=== PATIENT | male | born 1965 | race Caucasian/White ===

== ENCOUNTER 2016-08-08 19:24 | Emergency (ER) | payer OTHER ==
[~2016-08-08] VITALS: Ht 177.8 cm; Wt 105.3 kg
[2016-08-08 19:28] VITALS: TEMP 37.2; Ht 177.8 cm; Wt 105.3 kg
[2016-08-08] MEDS ORDERED: LISI-725 PO (19:39)
[2016-08-08] MEDS ORDERED: MUSCLE RELAXANT PO (19:39)
[2016-08-08] MEDS ORDERED: NAPR1TAB9 PO (19:39)
[2016-08-08] MEDS ORDERED: PRLSR20 PO (19:39)
--- NOTE | 2016-08-08 20:12 | DIAGNOSTIC IMAGING REPORT ---
RIGHT SHOULDER MIN 2 VIEWS ROUTINE CLINICAL HISTORY: Right shoulder pain COMPARISON: None DISCUSSION: No fractures or dislocations are visualized. There are no erosive or destructive changes. There are no visible periarticular calcifications. IMPRESSION: No bony abnormalities identified. Electronically signed by: Ag Valdez M.D. 08/08/2016 8:11 PM Dictated Date/Time: 08/08/2016 8:10 PM
[2016-08-08] MEDS ORDERED: NAPR-1169 PO (21:00)
[2016-08-08] MEDS ORDERED: OXYC-57 PO (21:00)
[2016-08-08] MEDS ORDERED: OXYCODONE/ACETAMINOPHEN 5-325 TAB PO STA (21:02)
--- NOTE | 2016-08-08 21:02 | EMERGENCY ROOM VISIT NOTE ---
ED Visit Note First contact with patient: 19:31 CHIEF COMPLAINT: Shoulder pain HISTORY OF PRESENT ILLNESS: This 50-year-old male patient presents to the emergency department ambulatory complaining of pain in the right shoulder which began this morning when he woke up. The patient reports he has had gradually worsening pain in the right shoulder since waking up this morning. He reports that when he woke up, he felt like he slept on the arm wrong and had some pain with movement. The pain has worsened and he now has limitation of range of motion of the arm due to the pain. He denies any recent injury of the shoulder. The pain is worse with any movement. He rates the discomfort a 10/ 10. He has not taken any medications at home for the pain. The pain does not radiate anywhere. He denies any numbness or weakness of the arm. He denies any pain in the neck or back. No chest pain or shortness of breath. No abdominal pain or nausea/vomiting. No cough. REVIEW OF SYSTEMS: A 6 system review of systems was performed with positives and pertinent negatives in the HPI. ALLERGIES: No known drug allergies MEDICATIONS: Lisinopril, Prilosec PMH: Hypertension SOCIAL HISTORY: The patient lives locally with family. He is a smoker and admits to occasional alcohol use. PHYSICAL EXAM: Vital Signs: Reviewed nurse's notes, vital signs stable. GENERAL : This is a 50-year-old male, in no acute distress, but appears to be in pain, well-developed, well-nourished. MUSCULOSKELETAL: There is no deformity in the contour of the right shoulder and there are no sergio deformities noted. There is tenderness over the acromion process. The patient's range of motion is full. Supraspinatus strength 5/5. There is no clavicle tenderness. No tenderness of the humerus, elbow, wrist, or hand. [employer] strength 5/5. Radial pulse 2+. NECK: No tenderness to palpation over the cervical spine. HEART: Regular rate and rhythm without murmurs gallops or rubs. LUNGS: Clear to auscultation bilaterally without wheezes, rales or rhonchi. No accessory muscle use. No retractions. NEURO: The patient is alert and oriented to person, place, and time. Normal sensation to light and sharp touch. Capillary refill less than 2 seconds. RADIOGRAPHIC FINDINGS: RIGHT SHOULDER MIN 2 VIEWS ROUTINE CLINICAL HISTORY: Right shoulder pain COMPARISON: None DISCUSSION: No fractures or dislocations are visualized. There are no erosive or destructive changes. There are no visible periarticular calcifications. IMPRESSION: No bony abnormalities identified. EMERGENCY DEPARTMENT COURSE: I examined the patient. An X-ray of the right shoulder was reviewed by myself and radiology and shows no acute findings. I suspect the patient may have a rotator cuff tendinitis. He will be placed on Naprosyn and was given a short course of Percocet for pain. The [place] prescription drug monitoring program was queried and no red flags were identified. The patient was instructed to follow-up with his primary care provider or orthopedics for further evaluation of his shoulder pain. He was placed in a sling for comfort. He verbalized understanding of my assessment and treatment plan and was discharged home in good condition. DIAGNOSIS: Right shoulder pain Current/Historical Medications Scheduled Lisinopril (Zestril), 20 MG PO DAILY Naproxen (Aleve), 440 MG PO PRN UD Naproxen (Naprosyn), 500 MG PO BID Omeprazole (Prilosec), 20 MG PO DAILY [Muscle Relaxant], 1 TAB PO PRN Scheduled PRN Oxycodone/Acetaminophen 5MG/325MG (Percocet 5MG/325MG), 1-2 TABS PO Q4H PRN for Pain Allergies Uncoded Allergies: CLAMS (Allergy, Intermediate, Violently ill, 08/08/16) Vital Signs Date Time Temp Pulse Resp B/P Pulse Ox O2 Delivery O2 Flow Rate FiO2 08/08/16 21:18 99 18 128/81 96 08/08/16 19:28 37.2 116 18 137/86 95 Room Air Medications Administered Medications (Trade) Dose Ordered Sig/[place] Route Start Time Stop Time Status Last Admin Dose Admin Oxycodone/ Acetaminophen (Percocet 5-325mg Tab) 1 tab NOW STAT PO 08/08/16 21:02 08/08/16 21:03 DC 08/08/16 21:14 1 TAB Departure Information Impression Primary Impression: Right shoulder pain Dispostion Home / Self-Care Condition GOOD Prescriptions Oxycodone/Acetaminophen 5MG/325MG (PERCOCET 5MG/325MG) Tab 1-2 TABS PO Q4H Y for Pain, #15 TAB For Initial Treatment Prov: TilleyJanet PA-C 08/08/16 Naproxen (Naprosyn) 500 Mg Tab 500 MG PO BID for 10 Days, #20 TAB Prov: Janet Tilley PA-C 08/08/16 Referrals No Doctor, Assigned (PCP) Scot Dan M.D. Forms HOME CARE DOCUMENTATION FORM, IMPORTANT VISIT INFORMATION Patient Instructions My [facility] Additional Instructions You have been treated in the Emergency Department for Shoulder Pain. You have been prescribed percocet to be used for pain control. This is a narcotic medication. You cannot drive or consume alcohol while on this medicine. This medicine should only be used for pain that cannot be controlled with [id number] pain medicines. Take the Naprosyn as prescribed. If this is a recent injury (<24 hrs), ice can be applied to the area of pain for the first 3 days to help decrease pain and inflammation. You have been provided the number for an Orthopaedic Surgeon. You should call this number as soon as possible to establish a follow-up visit from today's Emergency Department visit. Wear the sling as needed for pain. Return to the Emergency Department if your current symptoms worsen despite treatment course outlined above, or if you develop any of the following symptoms : intractable pain despite aforementioned treatment course or new onset of numbness or tingling of the arm. Problem Qualifiers Primary Impression: Right shoulder pain Chronicity: acute Qualified Codes: M25.511 - Pain in right shoulder
[2016-08-08 21:18] VITALS: BP 128/81; PULSE 99; O2SAT 96
== END 2016-08-08 21:20 | disposition home or self-care (01) ==
LOC: C.EDB 19:27 → C.EDD 21:20
DX: M25.511 Pain in right shoulder (principal); I10 Essential (primary) hypertension; F17.200 Nicotine dependence, unspecified, uncomplicated; Z79.899 Other long term (current) drug therapy

== ENCOUNTER 2019-09-12 01:22 | Inpatient (IN) ==
[2019-09-12] MEDS ORDERED: MoRPHine SULFATE 4 MG/ML 1 ML CARP\\VIAL IV STA (02:02)
[2019-09-12] MEDS ORDERED: OPTIRAY 320 125ml IV PRN (02:02)
--- NOTE | 2019-09-12 02:13 | Emergency Department Note ---
History of Present Illness General Chief complaint: Fever Stated complaint: FEVER, SLIGHT COUGH,CHEST PAIN, SOB History of Present Illness Maximum Pain Intensity: 6 This 54-year-old presents to the ER complaining of severe chest pain that radiates to his back with low-grade fever today Location: Chest Quality: Severe Severity: Severe Duration: Tonight Timing: Tonight Context: Patient was concerned and came in Modifying factors: better with sitting forward; worse with leaning back Patient states he has not traveled. He is been at home for the past month. He currently is not working. He last went to the store a week and a half ago. His is not sick. No sick contacts. Patient states he had a cold last weekend that resolved and tonight he had severe chest pain and came in. Patient complains of diaphoresis and nausea. He has been coughing. He is a smoker. He is diabetic and has high blood pressure. Patient denies abdominal pain, travel, sick contacts, leg pain or swelling, heart disease, family history of heart disease or blood clots. Home Medications Home Medications Medication Instructions Recorded Confirmed Type atorvastatin 20 mg PO DAILY 09/12/19 09/12/19 History diclofenac sodium 1 % TOPICAL DIRECTED 09/12/19 09/12/19 History lisinopril-hydrochlorothiazide 1 tab PO DAILY 09/12/19 09/12/19 History meloxicam 15 mg PO DAILY 09/12/19 09/12/19 History metformin 500 mg PO BID 09/12/19 09/12/19 History omeprazole 20 mg PO DAILY 09/12/19 09/12/19 History Allergies Allergy/AdvReac Type Severity Reaction Status Date / Time clams Allergy Severe violently Verified 09/12/19 03:47 ill shellfish derived Allergy Severe violently Verified 09/12/19 02:19 ill Past Med/Surg History Medical History Diabetes High blood pressure Surgical History No pertinent past surgical history Social History Preferred Language: French Communication Ability: Effective Public Policy Mediator Required: No Beliefs That Will Affect Care: None Current Living Situation: Spouse Other Information That Helps Us Care for You: No Feels Safe at Home: Yes Safety Concerns: Feels Safe At This Time Smoking Status: Former smoker Tobacco Type: cigarettes ; Hx Alcohol Use: Yes Alcohol type: beer Hx Substance Use: No Review of Systems A total of 10 systems reviewed and were otherwise negative Physical Exam Vital Signs Vital Signs - 24 hr 09/12/19 01:32 09/12/19 01:52 09/12/19 02:30 Temperature 37.8 C H Temperature Source Oral Pulse Rate 123 H 128 H 111 H Pulse Rate from SpO2 Sensor 111 H Respiratory Rate 24 33 H 27 H Respiratory Effort / Characteristics Non-Labored Respiratory Depth Normal Blood Pressure 123/76 129/78 130/79 Blood Pressure Mean 91 96 96 Pulse Oximetry 93 94 Oxygen Delivery Method Room Air Room Air Sepsis Recent Fever Within 48 Hours No Sepsis New/Unexplained Change in Mental Status No Sepsis Action Taken by Nursing No Action Required 09/12/19 02:45 09/12/19 02:57 09/12/19 03:00 Temperature Temperature Source Pulse Rate 108 H 103 H Pulse Rate from SpO2 Sensor 107 H 102 H Respiratory Rate 25 H 33 H Respiratory Effort / Characteristics Respiratory Depth Blood Pressure 115/85 119/78 Blood Pressure Mean 92 92 Pulse Oximetry 95 94 94 Oxygen Delivery Method Room Air Room Air Room Air Sepsis Recent Fever Within 48 Hours Sepsis New/Unexplained Change in Mental Status Sepsis Action Taken by Nursing 09/12/19 03:35 09/12/19 03:45 09/12/19 04:00 Temperature Temperature Source Pulse Rate 104 H 111 H 107 H Pulse Rate from SpO2 Sensor 105 H 111 H 107 H Respiratory Rate 32 H 26 H 27 H Respiratory Effort / Characteristics Respiratory Depth Blood Pressure 129/79 139/90 134/84 Blood Pressure Mean 85 120 90 Pulse Oximetry 92 94 94 Oxygen Delivery Method Room Air Room Air Room Air Sepsis Recent Fever Within 48 Hours Sepsis New/Unexplained Change in Mental Status Sepsis Action Taken by Nursing 09/12/19 04:17 09/12/19 04:30 Temperature Temperature Source Pulse Rate 113 H 115 H Pulse Rate from SpO2 Sensor 113 H 115 H Respiratory Rate 27 H 19 Respiratory Effort / Characteristics Respiratory Depth Blood Pressure 107/76 124/86 Blood Pressure Mean 78 101 Pulse Oximetry 94 95 Oxygen Delivery Method Room Air Room Air Sepsis Recent Fever Within 48 Hours Sepsis New/Unexplained Change in Mental Status Sepsis Action Taken by Nursing VITALS: Vitals are noted on the nurse's note and reviewed by myself. Vital signs tachycardic. GENERAL: Pale uncomfortable diaphoretic appearing male in acute distress SKIN: The skin was without rashes, erythema, edema, or bruising. There is no tenting of the skin. Capillary reflex less than 2 seconds. HEAD: Normocephalic atraumatic. EARS: External auditory canals clear, tympanic membranes pearly dennis without erythema or effusion bilaterally. EYES: Pupils equal round and reactive to light and accommodation. Conjunctivae without injection, sclerae without icterus. Extraocular movements intact. NOSE: Patent, turbinates without inflammation or discharge. No sinus tenderness. MOUTH: Mucous membranes moist. Pharynx without erythema or exudate. Uvula midline. Airway patent. Tongue does not deviate. NECK: Supple without nuchal rigidity. No lymphadenopathy. No thyromegaly. Cervical spine is nontender. No JVD. HEART: Tachycardic rate and rhythm LUNGS: Clear to auscultation bilaterally without wheezes, rales or rhonchi. No retractions or accessory muscle use. ABDOMEN: Positive bowel sounds x 4. Normal tympanic percussion. Soft, nontender, without masses or organomegaly. Noble sign negative. No guarding or rebound tenderness. No CVA tenderness MUSCULOSKELETAL: No muscle atrophy, erythema, or edema noted. NEURO: Patient was alert and oriented to person place and time. Normal sensation to light and sharp touch. No focal neurological deficits. Course Administered Medications Atorvastatin Calcium (Lipitor) 20 mg PO DAILY [facility] Stop: 10/12/19 08:59 Last Admin: 09/12/19 07:46 Dose: 20 mg Documented by: [id number] Colchicine (Colcrys) 0.6 mg PO BID [facility] Stop: 10/12/19 11:14 Last Admin: 09/12/19 20:31 Dose: 0.6 mg Documented by: [id number] Admin: 09/12/19 13:19 Dose: 0.6 mg Documented by: [id number] Sodium Chloride (Nss 1000ml) 1,000 mls @ 80 mls/hr IV .[id number] MELISSA Stop: 10/12/19 07:14 Last Infusion: 09/12/19 18:08 Dose: 80 mls/hr Documented by: [id number] Admin: 09/12/19 07:47 Dose: 60 mls/hr Documented by: [id number] Ceftriaxone Sodium 2,000 mg/ (Dextrose) 70 mls @ 140 mls/hr IV Q24H MELISSA Stop: 09/22/19 08:59 Last Infusion: 09/12/19 11:05 Dose: 0 mls/hr Documented by: [id number] Admin: 09/12/19 10:33 Dose: 140 mls/hr Documented by: [id number] Insulin Aspart (Novolog Flexpen) 0 units SC Q6 MELISSA Stop: 10/12/19 06:14 Last Admin: 09/12/19 18:07 Dose: Not Given Documented by: [id number] Cosigned by: [id number] Admin: 09/12/19 12:08 Dose: 2 units Documented by: [id number] Cosigned by: [id number] Admin: 09/12/19 06:28 Dose: Not Given Documented by: [id number] Cosigned by: [id number] Lisinopril (Zestril) 5 mg PO QAM MELISSA Stop: 10/12/19 08:59 Last Admin: 09/12/19 07:46 Dose: 5 mg Documented by: [id number] Oxycodone HCl (Roxicodone Immediate Rel) 5 mg PO Q4H PRN PRN Reason: Pain Stop: 09/26/19 05:54 Last Admin: 09/12/19 20:30 Dose: 5 mg Documented by: [id number] Admin: 09/12/19 16:46 Dose: 5 mg Documented by: [id number] Admin: 09/12/19 12:05 Dose: 5 mg Documented by: [id number] Pantoprazole Sodium (Protonix) 40 mg PO DAILY MELISSA Stop: 10/12/19 08:59 Last Admin: 09/12/19 07:46 Dose: 40 mg Documented by: [id number] Discontinued Medications Acetaminophen (Tylenol) 650 mg PO NOW STA Stop: 09/12/19 03:38 Last Admin: 09/12/19 04:22 Dose: Not Given Documented by: [id number] Doxycycline Hyclate (Vibramycin) 100 mg PO NOW STA Stop: 09/12/19 02:36 Last Admin: 09/12/19 03:36 Dose: 100 mg Documented by: [id number] Enoxaparin Sodium (Lovenox) 40 mg SQ QAM MELISSA Stop: 10/12/19 08:59 Last Admin: 09/12/19 07:47 Dose: 40 mg Documented by: [id number] Hydromorphone HCl (Dilaudid) 1 mg IV NOW STA Stop: 09/12/19 02:26 Last Admin: 09/12/19 02:43 Dose: 1 mg Documented by: [id number] Sodium Chloride (Nss 1000ml) 1,000 mls @ 999 mls/hr IV .Q1H1M MELISSA Stop: 09/12/19 03:15 Last Infusion: 09/12/19 04:11 Dose: 0 mls/hr Documented by: [id number] Admin: 09/12/19 03:10 Dose: 999 mls/hr Documented by: [id number] Sodium Chloride (Nss 1000ml) 1,000 mls @ 999 mls/hr IV .Q1H1M MELISSA Stop: 09/12/19 03:33 Last Infusion: 09/12/19 04:41 Dose: 0 mls/hr Documented by: [id number] Admin: 09/12/19 03:43 Dose: 999 mls/hr Documented by: [id number] Ceftriaxone Sodium (Rocephin) 2,000 mg in 70 mls @ 140 mls/hr IV NOW STA Stop: 09/12/19 03:04 Last Admin: 09/12/19 03:44 Dose: Not Given Documented by: [id number] Cefepime HCl (Maxipime) 2,000 mg in 20 mls @ 5 mls/min IV NOW STA Stop: 09/12/19 03:42 Last Admin: 09/12/19 04:00 Dose: 5 mls/min Documented by: [id number] Vancomycin HCl 2,500 mg/ (Sodium Chloride) 550 mls @ 200 mls/hr IV ONE ONE Stop: 09/12/19 06:59 Last Infusion: 09/12/19 07:00 Dose: 0 mls/hr Documented by: [id number] Admin: 09/12/19 04:08 Dose: 200 mls/hr Documented by: [id number] Lorazepam (Ativan) 0.25 mg in 0.5 mls @ 0.5 mls/min IV Q1H STA Stop: 09/12/19 04:32 Last Admin: 09/12/19 05:19 Dose: Not Given Documented by: [id number] Sodium Chloride (Nss) 500 mls @ 500 mls/hr IV .Q1H ONE Stop: 09/12/19 07:14 Last Infusion: 09/12/19 07:30 Dose: 0 mls/hr Documented by: [id number] Admin: 09/12/19 06:30 Dose: 500 mls/hr Documented by: [id number] Vancomycin HCl 1,500 mg/ (Sodium Chloride) 530 mls @ 200 mls/hr IV Q12H MELISSA Stop: 10/24/19 12:59 Last Infusion: 09/12/19 17:00 Dose: 0 mls/hr Documented by: [id number] Admin: 09/12/19 14:18 Dose: 200 mls/hr Documented by: [id number] Insulin Glargine (Lantus Solostar Pen) 10 units SC NOW STA Stop: 09/12/19 05:56 Last Admin: 09/12/19 06:36 Dose: 10 units Documented by: [id number] Cosigned by: [id number] Ketorolac Tromethamine (Toradol) 10 mg IV NOW STA Stop: 09/12/19 02:58 Last Admin: 09/12/19 03:37 Dose: 10 mg Documented by: [id number] Ketorolac Tromethamine (Toradol) 15 mg IV NOW ONE Stop: 09/12/19 04:21 Last Admin: 09/12/19 04:27 Dose: 15 mg Documented by: [id number] Meloxicam (Mobic) 15 mg PO DAILY MELISSA Stop: 10/12/19 08:59 Last Admin: 09/12/19 07:46 Dose: 15 mg Documented by: [id number] Morphine Sulfate (Morphine Sulfate) 4 mg IV NOW STA Stop: 09/12/19 02:03 Last Admin: 09/12/19 02:10 Dose: 4 mg Documented by: [id number] Medical Decision Making Medical Records Attestation: I reviewed the patient's medical records. Home Medications Current Medication List: was personally reviewed by me Laboratory Data Attestation: I reviewed the patient's lab results. Result diagrams: 09/12/19 02:10 09/12/19 02:10 Lab Results 09/12/19 09/12/19 09/12/19 Range/Units 02:10 02:10 02:10 WBC 19.65 H (4.8-10.8) K/uL RBC 5.21 (4.7-6.1) M/uL Hgb 17.0 (14.0-18.0) g/dL POC Hgb (14.0-18.0) g/dl Hct 48.4 (42-52) % POC Hct (42-52) % MCV 92.9 (80-100) fL MCH 32.6 (25-34) pg MCHC 35.1 (32-36) g/dL RDW Std Deviation 46.6 H (36.4-46.3) fL RDW Coeff of Francis 13.6 (11.5-14.5) % Plt Count 268 (130-400) K/uL MPV 9.8 (7.4-10.4) fL Immature Gran % (Auto) 0.3 % Neut % (Auto) 79.5 % Lymph % (Auto) 10.9 % Wolfe % (Auto) 8.2 % Eos % (Auto) 0.8 % Baso % (Auto) 0.3 % Immature Gran # (Auto) 0.06 H (0.00-0.02) K/uL Neut # (Auto) 15.64 H (1.4-6.5) K/uL Lymph # (Auto) 2.14 (1.2-3.4) K/uL Wolfe # (Auto) 1.61 H (0.11-0.59) K/uL Eos # (Auto) 0.15 (0-0.5) K/uL Baso # (Auto) 0.05 (0-0.2) K/uL ESR (0-14) mm/hr PT 10.3 (9.0-12.0) Seconds INR 1.0 (0.9-1.1) APTT 26.8 (21.0-31.0) Seconds PTT Ratio 1.0 POC Sodium (135-144) mmol/L Sodium 132 L (136-145) mmol/L POC Potassium (3.3-5.0) mmol/L Potassium 4.0 (3.5-5.1) mmol/L POC Chloride (101-112) mmol/L Chloride 106 (98-107) mmol/L Carbon Dioxide 23 (21-32) mmol/L POC Total CO2 (24-31) mEq/l Anion Gap 3.0 (3-11) POC Anion Gap (16-25) mmol/L POC BUN (7-18) mg/dl BUN 19 H (7-18) mg/dl Creatinine 1.02 (0.6-1.4) mg/dl POC Creatinine (0.6-1.3) mg/dl Est Cr Clr Drug Dosing Not Reportable Est GFR ( Amer) 96.8 Est GFR (Non-Af Amer) 83.5 BUN/Creatinine Ratio 18.3 (10-20) Glucose 286 H (70-99) mg/dl POC Glucose (other) (70-99) mg/dl Lactate (0.4-2.0) mmol/L Calcium 8.6 (8.5-10.1) mg/dl POC Ioniz Calcium Rosanna (1.12-1.32) mmol/l Total Bilirubin 0.4 (0.2-1) mg/dl AST 8 L (15-37) U/L ALT 34 (12-78) U/L Alkaline Phosphatase 81 (45-117) U/L Troponin I < 0.015 (0-0.045) ng/ml C-Reactive Protein 8.21 H (0-0.29) mg/dl NT-Pro-B Natriuret Pep 91 (0-900) pg/ml Total Protein 7.7 (6.4-8.2) gm/dl Albumin 3.1 L (3.4-5.0) gm/dl Globulin 4.6 H (2.5-4.0) gm/dl Albumin/Globulin Ratio 0.7 L (0.9-2) Lipase 165 (73-393) U/L Lyme Disease IgG Ab (Negative) Lyme Disease IgM Ab (Negative) COVID-19 PCR 09/12/19 09/12/19 09/12/19 Range/Units 02:10 02:10 02:21 WBC (4.8-10.8) K/uL RBC (4.7-6.1) M/uL Hgb (14.0-18.0) g/dL POC Hgb 17.3 (14.0-18.0) g/dl Hct (42-52) % POC Hct 51 (42-52) % MCV (80-100) fL MCH (25-34) pg MCHC (32-36) g/dL RDW Std Deviation (36.4-46.3) fL RDW Coeff of Francis (11.5-14.5) % Plt Count (130-400) K/uL MPV (7.4-10.4) fL Immature Gran % (Auto) % Neut % (Auto) % Lymph % (Auto) % Wolfe % (Auto) % Eos % (Auto) % Baso % (Auto) % Immature Gran # (Auto) (0.00-0.02) K/uL Neut # (Auto) (1.4-6.5) K/uL Lymph # (Auto) (1.2-3.4) K/uL Wolfe # (Auto) (0.11-0.59) K/uL Eos # (Auto) (0-0.5) K/uL Baso # (Auto) (0-0.2) K/uL ESR 60 H (0-14) mm/hr PT (9.0-12.0) Seconds INR (0.9-1.1) APTT (21.0-31.0) Seconds PTT Ratio POC Sodium 136 (135-144) mmol/L Sodium (136-145) mmol/L POC Potassium 4.1 (3.3-5.0) mmol/L Potassium (3.5-5.1) mmol/L POC Chloride 102 (101-112) mmol/L Chloride (98-107) mmol/L Carbon Dioxide (21-32) mmol/L POC Total CO2 22 L (24-31) mEq/l Anion Gap (3-11) POC Anion Gap 17.0 (16-25) mmol/L POC BUN 20 H (7-18) mg/dl BUN (7-18) mg/dl Creatinine (0.6-1.4) mg/dl POC Creatinine 0.8 (0.6-1.3) mg/dl Est Cr Clr Drug Dosing Est GFR ( Amer) Est GFR (Non-Af Amer) BUN/Creatinine Ratio (10-20) Glucose (70-99) mg/dl POC Glucose (other) 288 H (70-99) mg/dl Lactate (0.4-2.0) mmol/L Calcium (8.5-10.1) mg/dl POC Ioniz Calcium Rosanna 1.12 (1.12-1.32) mmol/l Total Bilirubin (0.2-1) mg/dl AST (15-37) U/L ALT (12-78) U/L Alkaline Phosphatase (45-117) U/L Troponin I (0-0.045) ng/ml C-Reactive Protein (0-0.29) mg/dl NT-Pro-B Natriuret Pep (0-900) pg/ml Total Protein (6.4-8.2) gm/dl Albumin (3.4-5.0) gm/dl Globulin (2.5-4.0) gm/dl Albumin/Globulin Ratio (0.9-2) Lipase (73-393) U/L Lyme Disease IgG Ab Negative (Negative) Lyme Disease IgM Ab Equivocal A (Negative) COVID-19 PCR 09/12/19 09/12/19 09/12/19 Range/Units 02:45 03:16 03:16 WBC (4.8-10.8) K/uL RBC (4.7-6.1) M/uL Hgb (14.0-18.0) g/dL POC Hgb (14.0-18.0) g/dl Hct (42-52) % POC Hct (42-52) % MCV (80-100) fL MCH (25-34) pg MCHC (32-36) g/dL RDW Std Deviation (36.4-46.3) fL RDW Coeff of Francis (11.5-14.5) % Plt Count (130-400) K/uL MPV (7.4-10.4) fL Immature Gran % (Auto) % Neut % (Auto) % Lymph % (Auto) % Wolfe % (Auto) % Eos % (Auto) % Baso % (Auto) % Immature Gran # (Auto) (0.00-0.02) K/uL Neut # (Auto) (1.4-6.5) K/uL Lymph # (Auto) (1.2-3.4) K/uL Wolfe # (Auto) (0.11-0.59) K/uL Eos # (Auto) (0-0.5) K/uL Baso # (Auto) (0-0.2) K/uL ESR (0-14) mm/hr PT (9.0-12.0) Seconds INR (0.9-1.1) APTT (21.0-31.0) Seconds PTT Ratio POC Sodium (135-144) mmol/L Sodium (136-145) mmol/L POC Potassium (3.3-5.0) mmol/L Potassium (3.5-5.1) mmol/L POC Chloride (101-112) mmol/L Chloride (98-107) mmol/L Carbon Dioxide (21-32) mmol/L POC Total CO2 (24-31) mEq/l Anion Gap (3-11) POC Anion Gap (16-25) mmol/L POC BUN (7-18) mg/dl BUN (7-18) mg/dl Creatinine (0.6-1.4) mg/dl POC Creatinine (0.6-1.3) mg/dl Est Cr Clr Drug Dosing Est GFR ( Amer) Est GFR (Non-Af Amer) BUN/Creatinine Ratio (10-20) Glucose (70-99) mg/dl POC Glucose (other) (70-99) mg/dl Lactate 1.5 (0.4-2.0) mmol/L Calcium (8.5-10.1) mg/dl POC Ioniz Calcium Rosanna (1.12-1.32) mmol/l Total Bilirubin (0.2-1) mg/dl AST (15-37) U/L ALT (12-78) U/L Alkaline Phosphatase (45-117) U/L Troponin I < 0.015 (0-0.045) ng/ml C-Reactive Protein (0-0.29) mg/dl NT-Pro-B Natriuret Pep (0-900) pg/ml Total Protein (6.4-8.2) gm/dl Albumin (3.4-5.0) gm/dl Globulin (2.5-4.0) gm/dl Albumin/Globulin Ratio (0.9-2) Lipase (73-393) U/L Lyme Disease IgG Ab (Negative) Lyme Disease IgM Ab (Negative) COVID-19 PCR NEGATIVE Imaging Data Attestation: I personally reviewed and interpreted this imaging study as follows: MDM Narrative Prior records/ancillary studies reviewed. Triage Nursing notes reviewed. Additional history obtained from . The patient's history was concerning for chest pain and cold symptoms. Differential diagnosis: Etiologies such as cardiac ischemia, pneumonia, guzman infection, aortic dissection, pulmonary embolism, pneumonia, pneumothorax, musculoskeletal, infections, pericarditis, myocarditis, esophageal rupture, gastrointestinal, as well as others were entertained. Physical examination: As above. ER treatment provided: An order was placed for continuous cardiac monitoring. The monitor shows a rate of 60-1 30 with a sinus rhythm. IV fluids, morphine, Dilaudid I also spoke to the Joan, and states the patient was sick with cold symptoms last week and was doing better but for the past day has been sick again with cough low-grade fever and congestion. She was concerned as he was short of breath and having chest pains and made him come in. She does not feel there is been any risk factors for the coronavirus. She feels fine. On reassessment the patient felt better. Diagnostic interpretation by me: The electrocardiogram was negative for pathologic change. Poor baseline, normal sinus, normal intervals, no acute ST-T wave changes, rate of 122. Impression sinus tachycardia interpreted by myself EKG ordered for chest pain I think arrhythmia is unlikely. EKG shows normal sinus rhythm with no interval abnormalities such as QT prolongation or WPW. There are no findings to suggest Brugada syndrome. Cardiac monitoring in the emergency department reveals no tachycardic or bradycardic dysrhythmia. Hypertrophic cardiomyopathy was considered but there are no clear historical elements pointing toward this. EKG is not suggestive. The QRS voltage is not extremely large and there are no suggestive Q waves. The labs revealed leukocytosis, elevated inflammatory markers, negative troponin Stable creatinine Blood cultures pending neg Covid Imaging studies: CT CHEST W/WO Contrast: No thoracic aortic intramural hematoma, aneurysm, or dissection. Normal caliber main pulmonary artery. No acute pulmonary embolism. Small left pleural effusion. No pneumothorax. Bilateral lower lobe opacities, left greater than right, atelectasis favored over infiltrates. 8 mm right lower lobe pulmonary nodule along the major fissure (series 6, image 29). This may represent an intrapulmonary lymph node. Follow-up per Fleischner Society pulmona ry nodule recommendations. Normal heart size. Pericardial effusion measuring up to 17 mm anteriorly. Mild coronary artery atherosclerosis. Hepatic steatosis. No acute osseous findings. Radiologist: Dina Conti M.D. HEART SCORE: Hx: high/mod/low suspicion: 1 ECG: ST depression/nonspecific changes/normal: 0 Age: Greater than 65/45-64/less than 45: 1 Risk factors: (Hypertension, hyperlipidemia, diabetes, coronary disease, tobacco use, cocaine use): 2 Troponin: Greater than 2 times normal limits/1-2 times normal limits/normal: 0 Total: 4 Consultation: A consultation was placed with the hospitalist, Dr Us. The case was discussed and diagnostics were reviewed. The patient was evaluated in the ER for further treatment. He also recommends that I speak with Dr. Villalobos to make sure he he is okay with admitting the patient in case the patient needs the pericardial effusion drained. Dr. Villalobos stated that feels comfortable seeing the patient if needed. Exam and history seem consistent with pericarditis with possible pneumonia. Patient was given antibiotics and NSAIDs. Medicine was consulted. Patient is agreeable to treatment plan of admission. was informed per patient's request. By the evaluation outlined above emergent etiologies such as cardiac ischemia, aortic dissection, pulmonary embolism, pneumothorax, gastrointestinal, as well as others were deemed relatively unlikely. The pt informed about the findings as listed above. All questions were answered and pleased with the treatment. Case reviewed with my attending The chart was completed utilizing [employer] Speech voice recognition software. Grammatical errors, random word insertions, pronoun errors, and incomplete sentences are an occassional consequence of this system due to software willard itations, ambient noise, and hardware issues. Any formal questions or concerns about the content, text, or information contained within the body of this dictation should be directly addressed to the physician payroll and benefits assistant for clarification. Impression & Plan Pericarditis, Pneumonia, Acute pericardial effusion, Chest pain Discharge Plan Visit Data *Final* Discharge Date/Time: 09/12/19 05:25 Chief Complaint: Fever Stated Complaint: FEVER, SLIGHT COUGH,CHEST PAIN, SOB ED Provider: Sharda Watkins ED Midlevel Provider: Sujata Kee Discharge Problem: Pericarditis, Pneumonia, Acute pericardial effusion, Chest pain Patient Disposition: Admitted As Inpatient Condition: Fair Discharge Instructions Interventions: ED Discharge Assessment Last Done: 09/12/19 05:25 Discharge Problem: Pericarditis Qualifiers: Pericarditis type: unspecified type Chronicity: acute Qualified Code(s): I30.9 - Acute pericarditis, unspecified
[2019-09-12] MEDS ORDERED: SODIUM CHLORIDE 0.9% 1000ML 1,000 ML IV SCH ×2 (02:15→02:33)
[2019-09-12] MEDS ORDERED: HYDROmorphone INJ 1 MG/ML SYRINGE IV STA (02:25)
[2019-09-12 02:28] LABS: Basophils # (auto) 0.05 K/uL (0-0.2); Basophils % (auto) 0.3 %; Eosinophils # (auto) 0.15 K/uL (0-0.5); Eosinophils % (auto) 0.8 %; Hematocrit (blood only) 48.4 % (42-52); Immature Granulocytes # (auto) 0.06 K/uL (0.00-0.02); Immature Granulocytes % (auto) 0.3 %; Lymphocytes # (auto) 2.14 K/uL (1.2-3.4); Lymphocytes % (auto) 10.9 %; Mean Corpuscular Hemoglobin 32.6 pg (25-34); Mean Corpuscular Hgb Conc 35.1 g/dL (32-36); Mean Corpuscular Volume 92.9 fL (80-100); Mean Platelet Volume 9.8 fL (7.4-10.4); Monocytes # (auto) 1.61 K/uL (0.11-0.59); Monocytes % (auto) 8.2 %; Neutrophils # (auto) 15.64 K/uL (1.4-6.5); Neutrophils % (auto) 79.5 %; Platelet Count 268 K/uL (130-400); RDW Coefficient of Variation 13.6 % (11.5-14.5); RDW Standard Deviation 46.6 fL (36.4-46.3); Red Blood Count 5.21 M/uL (4.7-6.1); White Blood Count 19.65 K/uL (4.8-10.8)
[2019-09-12 02:34] LABS: iSTAT Creatinine 0.8 mg/dl (0.6-1.3); iSTAT Hemoglobin 17.3 g/dl (14.0-18.0); iSTAT Ionized Calcium 1.12 mmol/l (1.12-1.32); iSTAT Potassium 4.1 mmol/L (3.3-5.0)
[2019-09-12] MEDS ORDERED: cefTRIAXone SODIUM 2,000 MG/70 ML BAG IV STA (02:35)
[2019-09-12] MEDS ORDERED: DOXYCYCLINE HYCLATE 100 MG CAP PO STA (02:35)
[2019-09-12 02:37] LABS: Partial Thromboplastin Time 26.8 Seconds (21.0-31.0); Prothrombin Time 10.3 Seconds (9.0-12.0)
[2019-09-12 02:44] LABS: Alanine Aminotransferase 34 U/L (12-78); Albumin Level 3.1 gm/dl (3.4-5.0); Aspartate Aminotransferase 8 U/L (15-37); BUN Creatinine Ratio 18.3 (10-20); Blood Urea Nitrogen 19 mg/dl (7-18); Calcium 8.6 mg/dl (8.5-10.1); Carbon Dioxide 23 mmol/L (21-32); Chloride 106 mmol/L (98-107); Est GFR (African American) 96.8; Est GFR (Non-African American) 83.5; Glucose 286 mg/dl (70-99); Lipase 165 U/L (73-393); Sodium 132 mmol/L (136-145)
[2019-09-12 02:49] LABS: Albumin Globulin Ratio 0.7 (0.9-2); Alkaline Phosphatase 81 U/L (45-117); Bilirubin,Total 0.4 mg/dl (0.2-1); Globulin 4.6 gm/dl (2.5-4.0); Total Protein 7.7 gm/dl (6.4-8.2); Troponin I < 0.015 ng/ml (0-0.045)
[2019-09-12 02:57] LABS: C Reactive Protein 8.21 mg/dl (0-0.29)
[2019-09-12] MEDS ORDERED: KETOROLAC TROMETHAMINE 15 MG/ML VIAL IV STA (02:57)
[2019-09-12] MEDS ORDERED: ACETAMINOPHEN 325 MG TAB PO STA (03:37)
[2019-09-12] MEDS ORDERED: VANCOMYCIN CONSULT ACTIVE PRN (03:38)
[2019-09-12] MEDS ORDERED: CEFEPIME 2,000 MG/20 ML VIAL IV STA (03:39)
[2019-09-12 04:08] LABS: NT Pro B Type Natriuretic Pept 91 pg/ml (0-900)
[2019-09-12] MEDS ORDERED: VANCOMYCIN HCL 2,500 MG in SODIUM CHLORIDE 0.9% 500 ML IV ONE (04:15)
[2019-09-12] MEDS ORDERED: KETOROLAC TROMETHAMINE 15 MG/ML VIAL IV ONE (04:20)
[2019-09-12] MEDS ORDERED: LORazepam 0.25 MG/0.5 ML VIAL IV STA (04:31)
--- NOTE | 2019-09-12 04:31 | History & Physical Report ---
Date of Service September 12, 2019 Assessment & Plan (1) Sepsis: Secondary to infectious pericarditis Rule out Lyme carditis Hypertension, stable DM 2 on oral medications, admission BSG markedly elevated Well-controlled as of recent outpatient hemoglobin A1c of 6.08 April 2019 Past tobacco abuse PCU Cultures, Lyme screen Vancomycin, Cefepime for now CT surgery consult RE pericardial effusion (ER provider already in touch with Dr. Villalobos) We will keep patient n.p.o. for now in anticipation of procedure. TTE, Cardiology consult RE pericardial effusion ID consultation pending CS results availability Re: Possible infectious pericarditis/pericardial effusion Basal insulin, ISS BG goal [id number], update hemoglobin A1c DVT prophylaxis per Lovenox subcu Full code Text document was generated using [employer] voice recognition software. It may contain grammatical or spelling errors. Kindly contact undersigned for clarification of any documentation item in question. History of Present Illness Chief Complaint: Chest pain Primary Care Provider: Dr. Stafford History obtained from patient and records. Medical history significant for hypertension, DM 2 on oral medications, GERD, past tobacco abuse. 2 days history of pleuritic substernal pain worsening over the next few days with chills and shortness of breath. 2 days ago patient remembers being hunched over working on an engine model. No cough symptoms. No recent recollection of tick bites although there are ticks at place of residence. At the ER, patient given Doxycycline for sepsis. 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 Allergies Allergy/AdvReac Type Severity Reaction Status Date / Time clams Allergy Severe violently Verified 09/12/19 03:47 ill shellfish derived Allergy Severe violently Verified 09/12/19 02:19 ill Home Medications Home Medications Medication Instructions Recorded Confirmed Type atorvastatin 20 mg PO DAILY 09/12/19 09/12/19 History diclofenac sodium 1 % TOPICAL DIRECTED 09/12/19 09/12/19 History lisinopril-hydrochlorothiazide 1 tab PO DAILY 09/12/19 09/12/19 History meloxicam 15 mg PO DAILY 09/12/19 09/12/19 History metformin 500 mg PO BID 09/12/19 09/12/19 History omeprazole 20 mg PO DAILY 09/12/19 09/12/19 History Past Med/Surg History Medical History Diabetes High blood pressure Surgical History No pertinent past surgical history Social History Feels Safe at Home: Yes Smoking Status: Former smoker Review of Systems Review of Systems: As per HPI, all 10 systems reviewed, all other ROS negative Physical Exam Physical Exam: GENERAL: uncomfortable, minimal respiratory distress SKIN: Normal color, warm HEENT: Bespectacled, pink palpebral conjunctivae, no ptosis, dry buccal mucosa NECK : Supple, no tenderness CHEST : Decreased breath sounds , no tenderness HEART : Tachycardic, no obvious murmurs ABDOMEN: Some distention, nontender EXTREMITIES : No LE swelling/tenderness, no other conspicuous deformities noted NEUROLOGIC : Coherent, no facial asymmetry, no other gross focality Results & Data Results & Data ([facility]) Vital Signs (Past 12 Hours) Vital Signs Temp Pulse Resp BP Pulse Ox 09/12/19 04:17 113 H 27 H 107/76 94 09/12/19 04:00 107 H 27 H 134/84 94 09/12/19 03:45 111 H 26 H 139/90 94 09/12/19 03:35 104 H 32 H 129/79 92 09/12/19 03:00 119/78 94 09/12/19 02:57 103 H 33 H 94 09/12/19 02:45 108 H 25 H 115/85 95 09/12/19 02:30 111 H 27 H 130/79 94 09/12/19 01:52 128 H 33 H 129/78 09/12/19 01:32 37.8 C H 123 H 24 123/76 93 Laboratory Results Laboratory Results WBC 19.65 K/uL (4.8-10.8) H 09/12/19 02:10 RBC 5.21 M/uL (4.7-6.1) 09/12/19 02:10 Hgb 17.0 g/dL (14.0-18.0) 09/12/19 02:10 POC Hgb 17.3 g/dl (14.0-18.0) 09/12/19 02:21 Hct 48.4 % (42-52) 09/12/19 02:10 POC Hct 51 % (42-52) 09/12/19 02:21 MCV 92.9 fL (80-100) 09/12/19 02:10 MCH 32.6 pg (25-34) 09/12/19 02:10 MCHC 35.1 g/dL (32-36) 09/12/19 02:10 RDW Std Deviation 46.6 fL (36.4-46.3) H 09/12/19 02:10 RDW Coeff of Francis 13.6 % (11.5-14.5) 09/12/19 02:10 Plt Count 268 K/uL (130-400) 09/12/19 02:10 MPV 9.8 fL (7.4-10.4) 09/12/19 02:10 Immature Gran % (Auto) 0.3 % 09/12/19 02:10 Neut % (Auto) 79.5 % 09/12/19 02:10 Lymph % (Auto) 10.9 % 09/12/19 02:10 [place] % (Auto) 8.2 % 09/12/19 02:10 Eos % (Auto) 0.8 % 09/12/19 02:10 Baso % (Auto) 0.3 % 09/12/19 02:10 Immature Gran # (Auto) 0.06 K/uL (0.00-0.02) H 09/12/19 02:10 Neut # (Auto) 15.64 K/uL (1.4-6.5) H 09/12/19 02:10 Lymph # (Auto) 2.14 K/uL (1.2-3.4) 09/12/19 02:10 [place] # (Auto) 1.61 K/uL (0.11-0.59) H 09/12/19 02:10 Eos # (Auto) 0.15 K/uL (0-0.5) 09/12/19 02:10 Baso # (Auto) 0.05 K/uL (0-0.2) 09/12/19 02:10 ESR 60 mm/hr (0-14) H 09/12/19 02:10 PT 10.3 Seconds (9.0-12.0) 09/12/19 02:10 INR 1.0 (0.9-1.1) 09/12/19 02:10 APTT 26.8 Seconds (21.0-31.0) 09/12/19 02:10 PTT Ratio 1.0 09/12/19 02:10 POC Sodium 136 mmol/L (135-144) 09/12/19 02:21 Sodium 132 mmol/L (136-145) L 09/12/19 02:10 POC Potassium 4.1 mmol/L (3.3-5.0) 09/12/19 02:21 Potassium 4.0 mmol/L (3.5-5.1) 09/12/19 02:10 POC Chloride 102 mmol/L (101-112) 09/12/19 02:21 Chloride 106 mmol/L (98-107) 09/12/19 02:10 Carbon Dioxide 23 mmol/L (21-32) 09/12/19 02:10 POC Total CO2 22 mEq/l (24-31) L 09/12/19 02:21 Anion Gap 3.0 (3-11) 09/12/19 02:10 POC Anion Gap 17.0 mmol/L (16-25) 09/12/19 02:21 POC BUN 20 mg/dl (7-18) H 09/12/19 02:21 BUN 19 mg/dl (7-18) H 09/12/19 02:10 Creatinine 1.02 mg/dl (0.6-1.4) 09/12/19 02:10 POC Creatinine 0.8 mg/dl (0.6-1.3) 09/12/19 02:21 Est Cr Clr Drug Dosing Not Reportable 09/12/19 02:10 Est GFR ( Amer) 96.8 09/12/19 02:10 Est GFR (Non-Af Amer) 83.5 09/12/19 02:10 BUN/Creatinine Ratio 18.3 (10-20) 09/12/19 02:10 Glucose 286 mg/dl (70-99) H 09/12/19 02:10 POC Glucose (other) 288 mg/dl (70-99) H 09/12/19 02:21 Lactate 1.5 mmol/L (0.4-2.0) 09/12/19 03:16 Calcium 8.6 mg/dl (8.5-10.1) 09/12/19 02:10 POC Ioniz Calcium Rosanna 1.12 mmol/l (1.12-1.32) 09/12/19 02:21 Total Bilirubin 0.4 mg/dl (0.2-1) 09/12/19 02:10 AST 8 U/L (15-37) L 09/12/19 02:10 ALT 34 U/L (12-78) 09/12/19 02:10 Alkaline Phosphatase 81 U/L (45-117) 09/12/19 02:10 Troponin I < 0.015 ng/ml (0-0.045) 09/12/19 03:16 C-Reactive Protein 8.21 mg/dl (0-0.29) H 09/12/19 02:10 NT-Pro-B Natriuret Pep 91 pg/ml (0-900) 09/12/19 02:10 Total Protein 7.7 gm/dl (6.4-8.2) 09/12/19 02:10 Albumin 3.1 gm/dl (3.4-5.0) L 09/12/19 02:10 Globulin 4.6 gm/dl (2.5-4.0) H 09/12/19 02:10 Albumin/Globulin Ratio 0.7 (0.9-2) L 09/12/19 02:10 Lipase 165 U/L (73-393) 09/12/19 02:10 COVID-19 PCR NEGATIVE 09/12/19 02:[address] chest initial read: No pulmonary embolism. Small left pleural effusion. No pneumothorax. Bilateral lower lobe opacities atelectasis. 8 mm right lower lobe [place] nodule along major fissure possible intrapulmonary lymph node. Normal heart size. Pericardial effusion measuring up to 17 mm anteriorly. Mild coronary artery arthrosclerosis. EKG as per my interpretation : rate 125, sinus tachycardia, normal axis, LAE, T wave flattening inferior leads
[2019-09-12 04:32] LABS: Lyme Ab IgG w/WB Rflx Negative (Negative)
[2019-09-12 04:33] LABS: Lyme Ab IgM w/WB Rflx Equivocal (Negative)
[2019-09-12] MEDS ORDERED: GLUCAGON FOR INJ 1 MG VIAL SQ PRN (05:55)
[2019-09-12] MEDS ORDERED: ACETAMINOPHEN 325 MG TAB PO PRN (05:55)
[2019-09-12] MEDS ORDERED: DEXTROSE 50% 50 ML SYRINGE IV PRN (05:55)
[2019-09-12] MEDS ORDERED: PROMETHAZINE HCL 12.5 MG in SODIUM CHLORIDE 0.9% 50 ML IV PRN (05:55)
[2019-09-12] MEDS ORDERED: GLUCOSE 40% GEL 15 GM TUBE PO PRN (05:55)
[2019-09-12] MEDS ORDERED: CARBOHYDRATES FOR HYPOGLYCEMIA PO PRN (05:55)
[2019-09-12] MEDS ORDERED: LORazepam 0.25 MG/0.5 ML VIAL IV PRN (05:55)
[2019-09-12] MEDS ORDERED: MoRPHine SULFATE 4 MG/ML 1 ML CARP\\VIAL IV PRN (05:55)
[2019-09-12] MEDS ORDERED: KETOROLAC TROMETHAMINE 15 MG/ML VIAL IV PRN (05:55)
[2019-09-12] MEDS ORDERED: GLUCOSE 10 TABS/TUBE PO PRN (05:55)
[2019-09-12] MEDS ORDERED: INSULIN GLARGINE SOLOSTAR 100 UNITS/ML 3 ML PEN SC STA (05:55)
[2019-09-12] MEDS ORDERED: CEFEPIME CONSULT ACTIVE PRN (06:02)
[2019-09-12] MEDS ORDERED: PNEUMOCOCCAL POLYSACCHARIDES 25 MCG/0.5 ML VIAL/SYR IM ONE (06:12)
[2019-09-12] MEDS ORDERED: PNEUMOCOCCAL ADMINISTRATION CHARGE ONE (06:12)
[2019-09-12] MEDS ORDERED: SODIUM CHLORIDE 0.9% 500 ML IV ONE (06:15)
[2019-09-12] MEDS: INSULIN ASPART 100 UNITS/ML 3 ML PEN SC SCH ×3 (06:28→18:07)
--- NOTE | 2019-09-12 07:02 | CT Scan Report ---
CT ANGIOGRAPHY THE CHEST WITHOUT AND WITH CONTRAST CLINICAL HISTORY: Severe chest pain radiating to the back. Possible dissection. COMPARISON STUDY: No previous studies for comparison. TECHNIQUE: Unenhanced images were obtained through the chest. Following the IV administration of 118 mL of [id number]-[id number], CT angiography of the thorax was performed from the thoracic inlet to the lung bas es. Images are reviewed in the axial, sagittal, and coronal planes. IV contrast was administered with out complication. MIP imaging was performed. A dose lowering technique was utilized adhering to the p rinciples of ALA. CT DOSE: 1132.56 mGy.cm FINDINGS: Thyroid: Imaged portions of the thyroid gland are normal in appearance. Thoracic aorta: Noncontrast images reveal no evidence of acute aortic hematoma. Postcontrast images r eveal no evidence of thoracic aortic aneurysm. There is no evidence of thoracic aortic dissection. Pulmonary vasculature: The pulmonary trunk is normal in caliber. There are no central filling defects identified to suggest pulmonary embolus. Note that this examination was not protocoled for the evalu ation of pulmonary emboli. HEART: There is a moderate pericardial effusion. Lungs and pleural spaces: There are dependent bilateral pulmonary airspace opacities, likely atelecta tic although an infectious/inflammatory processes could appear similar. There is underlying emphysema with apical blebs. There is a solid 9 mm right lower lobe perifissural nodule. Given its location, t his could represent an intrapulmonary lymph node. Follow-up per Fleischner criteria is recommended. T here is a trace left pleural effusion. Mediastinum: Mediastinal lymph nodes are the upper limits of normal in size. [place]: There is no evidence of pathologic hilar lymphadenopathy Axilla: There is no evidence of pathologic axillary lymphadenopathy Upper abdomen: There is hepatic steatosis. Skeletal structures: There are no lytic or blastic osseous lesions. IMPRESSION: 1. No evidence of thoracic aortic aneurysm or dissection 2. Moderate pericardial effusion. 3. Solid 9 mm right lower lobe perifissural nodule. A 3 month follow-up CT scan is recommended. 4. Dependent lower lung zone airspace opacity statistically atelectatic. 5. Hepatic steatosis. 6. Trace left pleural effusion Please refer to below summary of Fleischner criteria recommendations for follow-up of incidental CT n bryon Almanza, Guidelines for management of small pulmonary nodules detected on CT scans: A sta tement from the Fleischner Society, Radiology 237: [phone].) SOLID NODULES Solitary nodule size: <6 mm * low risk patients: no follow-up needed * high risk patients: optional CT at 12 months Solitary nodule size: 6-8 mm * low risk patients: follow-up at 6-12 months, then consider further follow-up at 18-24 months * high risk patients: initial follow-up CT at 6-12 months and then at 18-24 months if no change Solitary nodule size: >8 mm * either low or high risk patients - consider follow-up CT at 3 months, and/or CT-PET, and/or biopsy Multiple nodules size: <6 mm * low risk patients: no routine follow-up * high risk patients: optional CT at 12 months Multiple nodules size: 6-8 mm * low risk patients: follow-up at 3-6 months, then consider further follow-up at 18-24 months * high risk patients: follow-up at 3-6 months, then at 18-24 months if no change Multiple nodules size: >8 mm * low risk patients: follow-up at 3-6 months, then consider further follow-up at 18-24 months * high risk patients: follow-up at 3-6 months, then at 18-24 months if no change Note: newly detected indeterminate nodule in persons 35 years of age or older. * low risk patients: minimal or absent history of smoking and/or other known risk factors * high risk patients: history of smoking or of other known risk factors (e.g. first degree relative with lung cancer, or exposure to asbestos, radon, uranium) * if a nodule up to 8 mm is partly solid or is ground glass further follow-up is required after 24 m onths to exclude possible slow growing adenocarcinoma (CECE) SUBSOLID NODULES Solitary pure ground-glass nodule * nodule size <6 mm - no CT follow-up required * nodule size >=6 mm - follow-up CT at 6-12 months, then every 2 years until 5 years Solitary part-solid nodule * nodule size <6 mm - no CT follow-up required * nodule size >=6 mm - follow-up CT at 3-6 months. If unchanged, and solid component remains <6 mm, then annual follow-up for 5 years Multiple subsolid nodules * nodule size <6 mm - follow-up CT at 3-6 months, consider further follow-up at 2 and 4 years if sta ble * nodule size >=6 mm - follow-up CT at 3-6 months, subsequent management based on the most suspiciou s nodule(s) ACT 112: Negative or not required by law. Electronically signed by: Ag Valdez M.D. 09/12/2019 7:01 AM
[2019-09-12] MEDS: PANTOprazole 40 MG TAB PO SCH (07:46)
[2019-09-12] MEDS: ATORVASTATIN 20 MG TAB PO SCH (07:46)
[2019-09-12] MEDS: SODIUM CHLORIDE 0.9% 1000ML 1,000 ML IV SCH ×2 (07:47→23:00)
--- NOTE | 2019-09-12 08:29 | Cardiology Consultation ---
Date of Consultation September 12, 2019 Assessment & Plan (1) Pericarditis: (2) Chest pain: (3) Acute pericardial effusion: By my review the CAT scan, the patient has a small amount of pericardial fluid and no thickening of the pericardium that would suggest pericarditis. An echocardiogram is pending. He had an equivocal Lyme's test on admission and further labs are pending including blood cultures. He does have a leukocytosis without a left shift. He has an elevated sed rate. At this point I would recommend starting him on colchicine and waiting for further labs including his blood cultures. He has been started on antibiotics. I will review the echocardiogram myself and then have further recommendations. History of Present Illness Attending Physician: David Armstrong MD History of Present Illness This is a 54-year-old male patient with no prior history of heart disease. He was diagnosed with diabetes approximately 2 years ago. He also has a history of smoking and recently stopped. He was in his usual state of health until 48 to 72 hours ago the patient developed more or less continuous chest discomfort which seems to increase with activities such as standing and then lying flat. He denies shortness of breath. His cardiac markers have been negative and his EKG shows no acute changes. A CT was performed in the emergency department and by that study there is a small amount of pericardial fluid without thickening of the pericardium. An echocardiogram is pending. The patient has an elevated white count without a left shift on admission. He also has an elevated sed rate. He has had a low-grade temperature after admission. He describes no recent tick bites. No vomiting or diarrhea. Allergies Allergy/AdvReac Type Severity Reaction Status Date / Time clams Allergy Severe violently Verified 09/12/19 03:47 ill shellfish derived Allergy Severe violently Verified 09/12/19 02:19 ill Home Medications Home Medications Medication Instructions Recorded Confirmed Type atorvastatin 20 mg PO DAILY 09/12/19 09/12/19 History diclofenac sodium 1 % TOPICAL DIRECTED 09/12/19 09/12/19 History lisinopril-hydrochlorothiazide 1 tab PO DAILY 09/12/19 09/12/19 History meloxicam 15 mg PO DAILY 09/12/19 09/12/19 History metformin 500 mg PO BID 09/12/19 09/12/19 History omeprazole 20 mg PO DAILY 09/12/19 09/12/19 History Patient History Medical History Diabetes High blood pressure Surgical History No pertinent past surgical history Social History Preferred Language: Slovenian Communication Ability: Effective Manager Field Service Required: No Beliefs That Will Affect Care: None Current Living Situation: Spouse Other Information That Helps Us Care for You: No Feels Safe at Home: Yes Safety Concerns: Feels Safe At This Time Smoking Status: Former smoker Tobacco Type: cigarettes ; Hx Alcohol Use: Yes Alcohol type: beer Hx Substance Use: No Review of Systems Review of Systems: All systems reviewed & are unremarkable except as noted in HPI & below Nothing additional to add Physical Exam Physical Exam: General: no acute distress and stated age Head: normocephalic, no masses, lesions, tenderness or abnormalities Eyes: conjunctiva are pink and non-injected, sclera clear Neck: supple, no adenopathy, no bruits, normal jugular venous pulse, no hepatojugular reflux Chest: normal shape and normal respiratory effort Lungs: clear to auscultation and percussion Cardiac Exam: - regular rate & rhythm, no murmurs gallops or rubs - normal S1, normal S2 Pulses: 2(+) throughout Abdomen: abdomen soft, non-tender, no abnormal masses and no hepatosplenomegaly Musculoskeletal: no gait disturbance, no joint inflammation, no deforming art hritis Extremities: no edema and no cyanosis Neuro: grossly normal exam Results & Data ([facility]) Vital Signs (Past 12 Hours) Vital Signs Temp Pulse Pulse Resp BP BP BP 09/12/19 07:04 36.8 C 102 H 20 108/74 09/12/19 05:57 37.1 C 101 H 18 112/76 09/12/19 05:00 106 H 17 100/74 09/12/19 04:45 109 H 22 125/91 09/12/19 04:30 115 H 19 124/86 09/12/19 04:17 113 H 27 H 107/76 09/12/19 04:00 107 H 27 H 134/84 09/12/19 03:45 111 H 26 H 139/90 09/12/19 03:35 104 H 32 H 129/79 09/12/19 03:00 119/78 09/12/19 02:57 103 H 33 H 09/12/19 02:45 108 H 25 H 115/85 09/12/19 02:30 111 H 27 H 130/79 09/12/19 01:52 128 H 33 H 129/78 09/12/19 01:32 37.8 C H 123 H 24 123/76 Pulse Ox 09/12/19 07:04 92 09/12/19 05:57 95 09/12/19 05:00 93 09/12/19 04:45 95 09/12/19 04:30 95 09/12/19 04:17 94 09/12/19 04:00 94 09/12/19 03:45 94 09/12/19 03:35 92 09/12/19 03:00 94 09/12/19 02:57 94 09/12/19 02:45 95 09/12/19 02:30 94 09/12/19 01:52 09/12/19 01:32 93 Laboratory Results Laboratory Results - last 24 hr 09/12/19 09/12/19 09/12/19 02:10 02:10 02:10 WBC 19.65 H RBC 5.21 Hgb 17.0 POC Hgb Hct 48.4 POC Hct MCV 92.9 MCH 32.6 MCHC 35.1 RDW Std Deviation 46.6 H RDW Coeff of Francis 13.6 Plt Count 268 MPV 9.8 Immature Gran % (Auto) 0.3 Neut % (Auto) 79.5 Lymph % (Auto) 10.9 [place] % (Auto) 8.2 Eos % (Auto) 0.8 Baso % (Auto) 0.3 Immature Gran # (Auto) 0.06 H Neut # (Auto) 15.64 H Lymph # (Auto) 2.14 [place] # (Auto) 1.61 H Eos # (Auto) 0.15 Baso # (Auto) 0.05 ESR PT 10.3 INR 1.0 APTT 26.8 PTT Ratio 1.0 POC Sodium Sodium 132 L POC Potassium Potassium 4.0 POC Chloride Chloride 106 Carbon Dioxide 23 POC Total CO2 Anion Gap 3.0 POC Anion Gap POC BUN BUN 19 H Creatinine 1.02 POC Creatinine Est Cr Clr Drug Dosing Not Reportable Est GFR ( Amer) 96.8 Est GFR (Non-Af Amer) 83.5 BUN/Creatinine Ratio 18.3 Glucose 286 H POC Glucose POC Glucose (other) Estimat Average Glucose Hemoglobin A1c Lactate Calcium 8.6 POC Ioniz Calcium Rosanna Total Bilirubin 0.4 AST 8 L ALT 34 Alkaline Phosphatase 81 Troponin I < 0.015 C-Reactive Protein 8.21 H NT-Pro-B Natriuret Pep 91 Total Protein 7.7 Albumin 3.1 L Globulin 4.6 H Albumin/Globulin Ratio 0.7 L Lipase 165 Lyme Disease IgG Ab Lyme IgG (Western Blot) Lyme IgG 18 kDa Band Lyme IgG 23 kDa Band Lyme IgG 28 kDa Band Lyme IgG 30 kDa Band Lyme IgG 39 kDa Band Lyme IgG 41 kDa Band Lyme IgG 45 kDa Band Lyme IgG 58 kDa Band Lyme IgG 66 kDa Band Lyme IgG 93 kDa Band Lyme IgM Ab (WB) Lyme Disease IgM Ab Lyme IgM 23 kDa Band Lyme IgM 39 kDa Band Lyme IgM 41 kDa Band COVID-19 PCR 09/12/19 09/12/19 09/12/19 02:10 02:10 02:10 WBC RBC Hgb POC Hgb Hct POC Hct MCV MCH MCHC RDW Std Deviation RDW Coeff of Francis Plt Count MPV Immature Gran % (Auto) Neut % (Auto) Lymph % (Auto) [place] % (Auto) Eos % (Auto) Baso % (Auto) Immature Gran # (Auto) Neut # (Auto) Lymph # (Auto) [place] # (Auto) Eos # (Auto) Baso # (Auto) ESR 60 H PT INR APTT PTT Ratio POC Sodium Sodium POC Potassium Potassium POC Chloride Chloride Carbon Dioxide POC Total CO2 Anion Gap POC Anion Gap POC BUN BUN Creatinine POC Creatinine Est Cr Clr Drug Dosing Est GFR ( Amer) Est GFR (Non-Af Amer) BUN/Creatinine Ratio Glucose POC Glucose POC Glucose (other) Estimat Average Glucose Pending Hemoglobin A1c Pending Lactate Calcium POC Ioniz Calcium Rosanna Total Bilirubin AST ALT Alkaline Phosphatase Troponin I C-Reactive Protein NT-Pro-B Natriuret Pep Total Protein Albumin Globulin Albumin/Globulin Ratio Lipase Lyme Disease IgG Ab Negative Lyme IgG (Western Blot) Lyme IgG 18 kDa Band Lyme IgG 23 kDa Band Lyme IgG 28 kDa Band Lyme IgG 30 kDa Band Lyme IgG 39 kDa Band Lyme IgG 41 kDa Band Lyme IgG 45 kDa Band Lyme IgG 58 kDa Band Lyme IgG 66 kDa Band Lyme IgG 93 kDa Band Lyme IgM Ab (WB) Lyme Disease IgM Ab Equivocal A Lyme IgM 23 kDa Band Lyme IgM 39 kDa Band Lyme IgM 41 kDa Band COVID-19 PCR 09/12/19 09/12/19 09/12/19 02:10 02:21 02:45 WBC RBC Hgb POC Hgb 17.3 Hct POC Hct 51 MCV MCH MCHC RDW Std Deviation RDW Coeff of Francis Plt Count MPV Immature Gran % (Auto) Neut % (Auto) Lymph % (Auto) [place] % (Auto) Eos % (Auto) Baso % (Auto) Immature Gran # (Auto) Neut # (Auto) Lymph # (Auto) [place] # (Auto) Eos # (Auto) Baso # (Auto) ESR PT INR APTT PTT Ratio POC Sodium 136 Sodium POC Potassium 4.1 Potassium POC Chloride 102 Chloride Carbon Dioxide POC Total CO2 22 L Anion Gap POC Anion Gap 17.0 POC BUN 20 H BUN Creatinine POC Creatinine 0.8 Est Cr Clr Drug Dosing Est GFR ( Amer) Est GFR (Non-Af Amer) BUN/Creatinine Ratio Glucose POC Glucose POC Glucose (other) 288 H Estimat Average Glucose Hemoglobin A1c Lactate Calcium POC Ioniz Calcium Rosanna 1.12 Total Bilirubin AST ALT Alkaline Phosphatase Troponin I C-Reactive Protein NT-Pro-B Natriuret Pep Total Protein Albumin Globulin Albumin/Globulin Ratio Lipase Lyme Disease IgG Ab Lyme IgG (Western Blot) Pending Lyme IgG 18 kDa Band Pending Lyme IgG 23 kDa Band Pending Lyme IgG 28 kDa Band Pending Lyme IgG 30 kDa Band Pending Lyme IgG 39 kDa Band Pending Lyme IgG 41 kDa Band Pending Lyme IgG 45 kDa Band Pending Lyme IgG 58 kDa Band Pending Lyme IgG 66 kDa Band Pending Lyme IgG 93 kDa Band Pending Lyme IgM Ab (WB) Pending Lyme Disease IgM Ab Lyme IgM 23 kDa Band Pending Lyme IgM 39 kDa Band Pending Lyme IgM 41 kDa Band Pending COVID-19 PCR NEGATIVE 09/12/19 09/12/19 09/12/19 03:16 03:16 06:28 WBC RBC Hgb POC Hgb Hct POC Hct MCV MCH MCHC RDW Std Deviation RDW Coeff of Francis Plt Count MPV Immature Gran % (Auto) Neut % (Auto) Lymph % (Auto) [place] % (Auto) Eos % (Auto) Baso % (Auto) Immature Gran # (Auto) Neut # (Auto) Lymph # (Auto) [place] # (Auto) Eos # (Auto) Baso # (Auto) ESR PT INR APTT PTT Ratio POC Sodium Sodium POC Potassium Potassium POC Chloride Chloride Carbon Dioxide POC Total CO2 Anion Gap POC Anion Gap POC BUN BUN Creatinine POC Creatinine Est Cr Clr Drug Dosing Est GFR ( Amer) Est GFR (Non-Af Amer) BUN/Creatinine Ratio Glucose POC Glucose 162 H POC Glucose (other) Estimat Average Glucose Hemoglobin A1c Lactate 1.5 Calcium POC Ioniz Calcium Rosanna Total Bilirubin AST ALT Alkaline Phosphatase Troponin I < 0.015 C-Reactive Protein NT-Pro-B Natriuret Pep Total Protein Albumin Globulin Albumin/Globulin Ratio Lipase Lyme Disease IgG Ab Lyme IgG (Western Blot) Lyme IgG 18 kDa Band Lyme IgG 23 kDa Band Lyme IgG 28 kDa Band Lyme IgG 30 kDa Band Lyme IgG 39 kDa Band Lyme IgG 41 kDa Band Lyme IgG 45 kDa Band Lyme IgG 58 kDa Band Lyme IgG 66 kDa Band Lyme IgG 93 kDa Band Lyme IgM Ab (WB) Lyme Disease IgM Ab Lyme IgM 23 kDa Band Lyme IgM 39 kDa Band Lyme IgM 41 kDa Band COVID-19 PCR Medications Administered Current Inpatient Medications Acetaminophen (Tylenol) 650 mg PO Q4H PRN PRN Reason: Pain or Fever Stop: 10/12/19 05:54 Atorvastatin Calcium (Lipitor) 20 mg PO DAILY [facility] Stop: 10/12/19 08:59 Last Admin: 09/12/19 07:46 Dose: 20 mg Documented by: Colchicine (Colcrys) 0.6 mg PO BID [facility] Stop: 10/12/19 11:14 Dextrose (Dextrose 50%) 25 - 50 ml IV UD PRN; Protocol PRN Reason: Hypoglycemia Protocol Stop: 10/12/19 05:54 Glucagon (Glucagen) 1 mg SQ UD PRN; Protocol PRN Reason: Hypoglycemia Protocol Stop: 10/12/19 05:54 Glucose (Dex4 Glucose) 4 - 8 tabs PO UD PRN; Protocol PRN Reason: Hypoglycemia Protocol Stop: 10/12/19 05:54 Glucose (Glucose 40%) 15 - 30 gm PO UD PRN; Protocol PRN Reason: Hypoglycemia Protocol Stop: 10/12/19 05:54 Lorazepam (Ativan) 0.25 mg in 0.5 mls @ 0.5 mls/min IV Q4H PRN PRN Reason: Anxiety Stop: 10/12/19 05:54 Sodium Chloride (Nss 1000ml) 1,000 mls @ 60 mls/hr IV .[id number] [facility] Stop: 10/12/19 07:14 Last Admin: 09/12/19 07:47 Dose: 60 mls/hr Documented by: Promethazine HCl 12.5 mg/ (Sodium Chloride) 50.5 mls @ 202 mls/hr IV Q6H PRN PRN Reason: Nausea And Vomiting Stop: 10/12/19 05:54 Ceftriaxone Sodium 2,000 mg/ (Dextrose) 70 mls @ 140 mls/hr IV Q24H [facility] Stop: 09/22/19 08:59 Last Admin: 09/12/19 10:33 Dose: 140 mls/hr Documented by: Insulin Aspart (Novolog Flexpen) 0 units SC Q6 [facility] Stop: 10/12/19 06:14 Last Admin: 09/12/19 06:28 Dose: Not Given Documented by: Insulin Glargine (Lantus Solostar Pen) 10 units SC DAILY [facility] Stop: 10/13/19 08:59 Ketorolac Tromethamine (Toradol) 15 mg IV Q6H PRN PRN Reason: Pain Stop: 09/17/19 05:54 Lisinopril (Zestril) 5 mg PO QAM [facility] Stop: 10/12/19 08:59 Last Admin: 09/12/19 07:46 Dose: 5 mg Documented by: Miscellaneous (Carbohydrates For Hypoglycemia) 15 - 30 gm PO UD PRN PRN Reason: Hypoglycemia Protocol Stop: 10/12/19 05:54 Miscellaneous Information (Consult) 1 ea N/A UD PRN PRN Reason: Consult Stop: 10/12/19 03:37 Miscellaneous Information () 1 ea N/A UD PRN PRN Reason: Consult Stop: 10/12/19 08:32 Morphine Sulfate (Morphine Sulfate) 4 mg IV Q4H PRN PRN Reason: Pain Stop: 09/26/19 05:54 Oxycodone HCl (Roxicodone Immediate Rel) 5 mg PO Q4H PRN PRN Reason: Pain Stop: 09/26/19 05:54 Pantoprazole Sodium (Protonix) 40 mg PO DAILY [facility] Stop: 10/12/19 08:59 Last Admin: 09/12/19 07:46 Dose: 40 mg Documented by: (1) Pericarditis Chronicity: acute Pericarditis type: unspecified type Qualified Code(s): I30.9 - Acute pericarditis, unspecified
[2019-09-12] MEDS ORDERED: ROCEPHIN PHARMACY CONSULT IN PROGRESS PRN (08:33)
[2019-09-12] MEDS ORDERED: ENOXAPARIN INJ 40 MG/0.4 ML SYR SQ SCH (09:00)
[2019-09-12] MEDS ORDERED: lisinopriL 5 MG TAB PO SCH (09:00)
[2019-09-12] MEDS ORDERED: MELOXICAM 7.5 MG TAB PO SCH (09:00)
[2019-09-12] MEDS ORDERED: CEFEPIME 2,000 MG in SYRINGE 7.5 ML IV SCH (10:00)
--- NOTE | 2019-09-12 10:10 | Electrocardiogram Report ---
Test Reason : Blood Pressure : / mmHG Vent. Rate : 122 BPM Atrial Rate : 122 BPM P-R Int : 124 ms QRS Dur : 086 ms QT Int : 310 ms P-R-T Axes : 054 062 029 degrees QTc Int : 441 ms Poor data quality, interpretation may be adversely affected Sinus tachycardia Left atrial enlargement Borderline ECG No previous ECGs available Confirmed by Tyrone Miller ([id number]) on 09/12/2019 10:09:51 AM Referred By: REFERRED SELF Confirmed By:Tyrone Miller
--- NOTE | 2019-09-12 10:11 | Electrocardiogram Report ---
Test Reason : Blood Pressure : / mmHG Vent. Rate : 101 BPM Atrial Rate : 101 BPM P-R Int : 126 ms QRS Dur : 082 ms QT Int : 330 ms P-R-T Axes : 055 060 039 degrees QTc Int : 427 ms Sinus tachycardia Otherwise normal ECG When compared with ECG of 12-SEP-2019 01:51, No significant change was found Confirmed by Tyrone Miller ([id number]) on 09/12/2019 10:10:52 AM Referred By: REFERRED SELF Confirmed By:Tyrone Miller
[2019-09-12] MEDS: cefTRIAXone SODIUM 2,000 MG in DEXTROSE 5% 50 ML IV SCH (10:33)
[2019-09-12] MEDS: OXYCODONE HCL IR 5 MG TAB (IMMEDIATE RELEASE) PO PRN ×3 (12:05→20:30)
[2019-09-12] MEDS ORDERED: VANCOMYCIN HCL 1,500 MG in SODIUM CHLORIDE 0.9% 500 ML IV SCH (13:00)
[2019-09-12] MEDS: COLCHICINE 0.6 MG TAB PO SCH ×2 (13:19→20:31)
--- NOTE | 2019-09-12 14:17 | Consultation Report ---
DATE OF CONSULTATION: 09/12/2019 REASON FOR CONSULTATION: Pericardial effusion. HISTORY OF PRESENT ILLNESS: Mr. Shelton is a 54-year-old male who was diagnosed with diabetes mellitus about 2 years ago and he is a bit overweight. About 3 days prior to admission, he started having continuous chest pain and even lying down or standing hurt him. He specifically denied fever or chills. He presented to the ER where a CT scan was performed, which showed he had a small homogenous pericardial effusion with no pericardial thickening. I was asked to evaluate him for possible diagnostic or therapeutic drainage of this effusion. Today, the patient states he feels much better. He has been started on colchicine by Dr. Castro. He states he is "world's better" than he was yesterday. PAST MEDICAL HISTORY: 1. Remote history of cigarette smoking. 2. Regular alcohol use. 3. Hypertension. 4. Adult-onset diabetes mellitus. 5. Obesity. PAST SURGICAL HISTORY: None. MEDICATIONS: Please see chart. ALLERGIES: No known drug allergies. REVIEW OF SYSTEMS: Please see history of present illness. PHYSICAL EXAMINATION: GENERAL: This is a 5 feet 10 inch, about 220 pound male who is lying in bed and appeared to be a bit uncomfortable, complaining of chest pain. HEENT: His extraocular movements are intact. His pupils are equal, round, reactive. Sclerae are anicteric. He appears to be a bit uncomfortable, is unshaven. NECK: He has no neck vein distention. LUNGS: He is moving air well without obvious wheezing. HEART: He has good heart tones. He has a regular rate and rhythm of his heart. He does not have a rub. ABDOMEN: Soft, nontender. I do not detect evidence of ascites or organomegaly. EXTREMITIES: He has no obvious joint effusions and no edema. NEUROLOGIC: He is completely intact. ASSESSMENT AND PLAN: Pericardial effusion. This is small homogenous, and echocardiogram showed no evidence of early diastolic collapse. I would agree with Dr. Castro that this is probably a simple pericarditis and I am hopeful he responds to colchicine. Thank you very much.
--- NOTE | 2019-09-12 16:05 | Pharmacy Report ---
Pharmacy Abx Initial Consult - Date of Service September 12, 2019 - Pharmacy Dosing Scope Date of Consult: 09/12/19 Consultation requested by: Dr. Us Pharmacy is consulted to initiate Vancomycin IV dosing therapy, order appropriate labs and adjust drug dose/frequency. - Subjective The patient is a 54 year old M admitted on 09/12/19 04:34. - Objective Height: 5 ft 10 in Weight: 98 kg Vital Signs (Past 12hrs): Vital Signs Temp Pulse Pulse Resp BP BP BP 09/12/19 15:23 36.9 C 98 H 18 116/80 09/12/19 12:28 36.9 C 96 H 18 122/83 09/12/19 07:04 36.8 C 102 H 20 108/74 09/12/19 05:57 37.1 C 101 H 18 112/76 09/12/19 05:00 106 H 17 100/74 09/12/19 04:45 109 H 22 125/91 09/12/19 04:30 115 H 19 124/86 09/12/19 04:17 113 H 27 H 107/76 09/12/19 04:00 107 H 27 H 134/84 Pulse Ox 09/12/19 15:23 91 09/12/19 12:28 91 09/12/19 07:04 92 09/12/19 05:57 95 09/12/19 05:00 93 09/12/19 04:45 95 09/12/19 04:30 95 09/12/19 04:17 94 09/12/19 04:00 94 Lab Results (24hrs): Laboratory Tests (24 Hours) 09/12/19 09/12/19 09/12/19 02:10 02:10 02:10 WBC 19.65 H Neut # (Auto) 15.64 H ESR 60 H Creatinine 1.02 Est Cr Clr Drug Dosing Not Reportable C-Reactive Protein 8.21 H Micro Results: 09/12/19 03:13 Aerobic Blood Culture - Pending Blood Anaerobic Blood Culture - Pending 09/12/19 03:16 Aerobic Blood Culture - Pending Blood Anaerobic Blood Culture - Pending - Assessment & Plan Assessment 54 year old M presenting with increasing pleuritic substernal pain and SOB. Increased WBC. CT showed small amount of pericardial fluid without thickening of the pericardium. Blood cultures x 2 pending. ECHO pending. Plan Vancomycin for treatment of possible pericarditis Vancomycin IV * Estimated PK Parameters: Vd 0.61 L/kg, Cliff 0.079 hr-1, t1/2 9 hr * Loading dose: 2500 mg (15 mg/kg) * Maintenance dose: 1500 mg IV (15 mg/kg) every 12 hours * Goal trough level for pericarditis : 15 to 20 mcg/mL * Trough level ordered for 09/13/19 at 1230 Patient also receiving Rocephin 2mg IV daily for possible [facility] will continue to follow and will adjust dose/frequency as necessary. Thank you.
--- NOTE | 2019-09-12 17:18 | Hospitalist Progress Note ---
Date of Service September 12, 2019 Assessment & Plan (1) Chest pain: 54 year old male with DM and HTN presenting with chest pain PERICARDIAL EFFUSION, LIKELY PERICARDITIS, r/o LYME CARDITIS Lyme screen: equivocal Lyme Western blot: pending Blood cultures: pending CT chest: no PE Echo: small pericardial effusion, LVH, EF 60-65% afebrile, BP stable, chest pain improving hold Vanco and Cefepime, change to Ceftriaxone IV Colchicine started appreciate Cardio SVC recommendations consulted ID as well HYPERTENSION BP low normal hold Lisinopril-HCTZ IV fluids continued DM 2 hold Metformin ISS for now ABNORMAL CT CHEST FINDINGS pulmonary nodules and hepatic steatosis monitor and ff up as outpatient DVT prophylaxis hold Lovenox in light of pericardial effusion continue SCDs Disposition anticipate d/c home when medically stable Admission and Anticipated Discharge Date Admission Date: September 12, 2019 Subjective ff up for pericardial effusion, possible pericarditis seen resting in bed, not in distress, appears tired states chest discomfort is improving- now mild no shortness of breath, nausea, dizziness no chills no headache, cough, sore throat, abdominal pain, problems with urination/BM, myalgias no other symptoms Review of Systems Review of Systems: All systems reviewed & are unremarkable except as noted in HPI & below Physical Exam Physical Exam: General- oriented x 3, not in distress, speaks in sentences wit h no effort or accessory muscle use Head- atraumatic Eyes- PERRL, EOMI, anicteric ENT- oropharynx clear Neck- supple, no JVD, no adenopathy, no thyromegaly; carotids +2/2, no bruits appreciated Lungs- clear to auscultation bilaterally, no rales/wheezes Heart- normal rate, regular rhythm; no murmur, no gallop, no rub appreciated Abdomen- normal bowel sounds, nondistended, soft, nontender, no masses or hepatosplenomegaly Extremities- no pretibial edema, no calf tenderness; peripheral pulses intact Neuro- alert, oriented x 3; CN 2-12 grossly intact; motor 5/5 bilaterally;sensation 100% on all extremities; no other gross focal neurologic deficits Skin- warm & dry Results & Data Results & Data ([facility]) Vital Signs (Past 12 Hours) Vital Signs Temp Pulse Resp BP BP Pulse Ox 09/12/19 15:23 36.9 C 98 H 18 116/80 91 09/12/19 12:28 36.9 C 96 H 18 122/83 91 09/12/19 07:04 36.8 C 102 H 20 108/74 92 09/12/19 05:57 37.1 C 101 H 18 112/76 95 Laboratory Results Laboratory Results - last 24 hr 09/12/19 09/12/19 09/12/19 02:10 02:10 02:10 WBC 19.65 H RBC 5.21 Hgb 17.0 POC Hgb Hct 48.4 POC Hct MCV 92.9 MCH 32.6 MCHC 35.1 RDW Std Deviation 46.6 H RDW Coeff of Francis 13.6 Plt Count 268 MPV 9.8 Immature Gran % (Auto) 0.3 Neut % (Auto) 79.5 Lymph % (Auto) 10.9 [place] % (Auto) 8.2 Eos % (Auto) 0.8 Baso % (Auto) 0.3 Immature Gran # (Auto) 0.06 H Neut # (Auto) 15.64 H Lymph # (Auto) 2.14 [place] # (Auto) 1.61 H Eos # (Auto) 0.15 Baso # (Auto) 0.05 ESR PT 10.3 INR 1.0 APTT 26.8 PTT Ratio 1.0 POC Sodium Sodium 132 L POC Potassium Potassium 4.0 POC Chloride Chloride 106 Carbon Dioxide 23 POC Total CO2 Anion Gap 3.0 POC Anion Gap POC BUN BUN 19 H Creatinine 1.02 POC Creatinine Est Cr Clr Drug Dosing Not Reportable Est GFR ( Amer) 96.8 Est GFR (Non-Af Amer) 83.5 BUN/Creatinine Ratio 18.3 Glucose 286 H POC Glucose POC Glucose (other) Estimat Average Glucose Hemoglobin A1c Lactate Calcium 8.6 POC Ioniz Calcium Rosanna Total Bilirubin 0.4 AST 8 L ALT 34 Alkaline Phosphatase 81 Troponin I < 0.015 C-Reactive Protein 8.21 H NT-Pro-B Natriuret Pep 91 Total Protein 7.7 Albumin 3.1 L Globulin 4.6 H Albumin/Globulin Ratio 0.7 L Lipase 165 Lyme Disease IgG Ab Lyme IgG (Western Blot) Lyme IgG 18 kDa Band Lyme IgG 23 kDa Band Lyme IgG 28 kDa Band Lyme IgG 30 kDa Band Lyme IgG 39 kDa Band Lyme IgG 41 kDa Band Lyme IgG 45 kDa Band Lyme IgG 58 kDa Band Lyme IgG 66 kDa Band Lyme IgG 93 kDa Band Lyme IgM Ab (WB) Lyme Disease IgM Ab Lyme IgM 23 kDa Band Lyme IgM 39 kDa Band Lyme IgM 41 kDa Band COVID-19 PCR 09/12/19 09/12/19 09/12/19 02:10 02:10 02:10 WBC RBC Hgb POC Hgb Hct POC Hct MCV MCH MCHC RDW Std Deviation RDW Coeff of Francis Plt Count MPV Immature Gran % (Auto) Neut % (Auto) Lymph % (Auto) [place] % (Auto) Eos % (Auto) Baso % (Auto) Immature Gran # (Auto) Neut # (Auto) Lymph # (Auto) [place] # (Auto) Eos # (Auto) Baso # (Auto) ESR 60 H PT INR APTT PTT Ratio POC Sodium Sodium POC Potassium Potassium POC Chloride Chloride Carbon Dioxide POC Total CO2 Anion Gap POC Anion Gap POC BUN BUN Creatinine POC Creatinine Est Cr Clr Drug Dosing Est GFR ( Amer) Est GFR (Non-Af Amer) BUN/Creatinine Ratio Glucose POC Glucose POC Glucose (other) Estimat Average Glucose Pending Hemoglobin A1c Pending Lactate Calcium POC Ioniz Calcium Rosanna Total Bilirubin AST ALT Alkaline Phosphatase Troponin I C-Reactive Protein NT-Pro-B Natriuret Pep Total Protein Albumin Globulin Albumin/Globulin Ratio Lipase Lyme Disease IgG Ab Negative Lyme IgG (Western Blot) Lyme IgG 18 kDa Band Lyme IgG 23 kDa Band Lyme IgG 28 kDa Band Lyme IgG 30 kDa Band Lyme IgG 39 kDa Band Lyme IgG 41 kDa Band Lyme IgG 45 kDa Band Lyme IgG 58 kDa Band Lyme IgG 66 kDa Band Lyme IgG 93 kDa Band Lyme IgM Ab (WB) Lyme Disease IgM Ab Equivocal A Lyme IgM 23 kDa Band Lyme IgM 39 kDa Band Lyme IgM 41 kDa Band COVID-19 PCR 09/12/19 09/12/19 09/12/19 02:10 02:21 02:45 WBC RBC Hgb POC Hgb 17.3 Hct POC Hct 51 MCV MCH MCHC RDW Std Deviation RDW Coeff of Francis Plt Count MPV Immature Gran % (Auto) Neut % (Auto) Lymph % (Auto) [place] % (Auto) Eos % (Auto) Baso % (Auto) Immature Gran # (Auto) Neut # (Auto) Lymph # (Auto) [place] # (Auto) Eos # (Auto) Baso # (Auto) ESR PT INR APTT PTT Ratio POC Sodium 136 Sodium POC Potassium 4.1 Potassium POC Chloride 102 Chloride Carbon Dioxide POC Total CO2 22 L Anion Gap POC Anion Gap 17.0 POC BUN 20 H BUN Creatinine POC Creatinine 0.8 Est Cr Clr Drug Dosing Est GFR ( Amer) Est GFR (Non-Af Amer) BUN/Creatinine Ratio Glucose POC Glucose POC Glucose (other) 288 H Estimat Average Glucose Hemoglobin A1c Lactate Calcium POC Ioniz Calcium Rosanna 1.12 Total Bilirubin AST ALT Alkaline Phosphatase Troponin I C-Reactive Protein NT-Pro-B Natriuret Pep Total Protein Albumin Globulin Albumin/Globulin Ratio Lipase Lyme Disease IgG Ab Lyme IgG (Western Blot) Pending Lyme IgG 18 kDa Band Pending Lyme IgG 23 kDa Band Pending Lyme IgG 28 kDa Band Pending Lyme IgG 30 kDa Band Pending Lyme IgG 39 kDa Band Pending Lyme IgG 41 kDa Band Pending Lyme IgG 45 kDa Band Pending Lyme IgG 58 kDa Band Pending Lyme IgG 66 kDa Band Pending Lyme IgG 93 kDa Band Pending Lyme IgM Ab (WB) Pending Lyme Disease IgM Ab Lyme IgM 23 kDa Band Pending Lyme IgM 39 kDa Band Pending Lyme IgM 41 kDa Band Pending COVID-19 PCR NEGATIVE 09/12/19 09/12/19 09/12/19 03:16 03:16 06:28 WBC RBC Hgb POC Hgb Hct POC Hct MCV MCH MCHC RDW Std Deviation RDW Coeff of Francis Plt Count MPV Immature Gran % (Auto) Neut % (Auto) Lymph % (Auto) [place] % (Auto) Eos % (Auto) Baso % (Auto) Immature Gran # (Auto) Neut # (Auto) Lymph # (Auto) [place] # (Auto) Eos # (Auto) Baso # (Auto) ESR PT INR APTT PTT Ratio POC Sodium Sodium POC Potassium Potassium POC Chloride Chloride Carbon Dioxide POC Total CO2 Anion Gap POC Anion Gap POC BUN BUN Creatinine POC Creatinine Est Cr Clr Drug Dosing Est GFR ( Amer) Est GFR (Non-Af Amer) BUN/Creatinine Ratio Glucose POC Glucose 162 H POC Glucose (other) Estimat Average Glucose Hemoglobin A1c Lactate 1.5 Calcium POC Ioniz Calcium Rosanna Total Bilirubin AST ALT Alkaline Phosphatase Troponin I < 0.015 C-Reactive Protein NT-Pro-B Natriuret Pep Total Protein Albumin Globulin Albumin/Globulin Ratio Lipase Lyme Disease IgG Ab Lyme IgG (Western Blot) Lyme IgG 18 kDa Band Lyme IgG 23 kDa Band Lyme IgG 28 kDa Band Lyme IgG 30 kDa Band Lyme IgG 39 kDa Band Lyme IgG 41 kDa Band Lyme IgG 45 kDa Band Lyme IgG 58 kDa Band Lyme IgG 66 kDa Band Lyme IgG 93 kDa Band Lyme IgM Ab (WB) Lyme Disease IgM Ab Lyme IgM 23 kDa Band Lyme IgM 39 kDa Band Lyme IgM 41 kDa Band COVID-19 PCR 09/12/19 09/12/19 11:24 16:28 WBC RBC Hgb POC Hgb Hct POC Hct MCV MCH MCHC RDW Std Deviation RDW Coeff of Francis Plt Count MPV Immature Gran % (Auto) Neut % (Auto) Lymph % (Auto) [place] % (Auto) Eos % (Auto) Baso % (Auto) Immature Gran # (Auto) Neut # (Auto) Lymph # (Auto) [place] # (Auto) Eos # (Auto) Baso # (Auto) ESR PT INR APTT PTT Ratio POC Sodium Sodium POC Potassium Potassium POC Chloride Chloride Carbon Dioxide POC Total CO2 Anion Gap POC Anion Gap POC BUN BUN Creatinine POC Creatinine Est Cr Clr Drug Dosing Est GFR ( Amer) Est GFR (Non-Af Amer) BUN/Creatinine Ratio Glucose POC Glucose 217 H 160 H POC Glucose (other) Estimat Average Glucose Hemoglobin A1c Lactate Calcium POC Ioniz Calcium Rosanna Total Bilirubin AST ALT Alkaline Phosphatase Troponin I C-Reactive Protein NT-Pro-B Natriuret Pep Total Protein Albumin Globulin Albumin/Globulin Ratio Lipase Lyme Disease IgG Ab Lyme IgG (Western Blot) Lyme IgG 18 kDa Band Lyme IgG 23 kDa Band Lyme IgG 28 kDa Band Lyme IgG 30 kDa Band Lyme IgG 39 kDa Band Lyme IgG 41 kDa Band Lyme IgG 45 kDa Band Lyme IgG 58 kDa Band Lyme IgG 66 kDa Band Lyme IgG 93 kDa Band Lyme IgM Ab (WB) Lyme Disease IgM Ab Lyme IgM 23 kDa Band Lyme IgM 39 kDa Band Lyme IgM 41 kDa Band COVID-19 PCR
[2019-09-13] MEDS: INSULIN ASPART 100 UNITS/ML 3 ML PEN SC SCH ×5 (00:20→20:25)
[2019-09-13] MEDS: OXYCODONE HCL IR 5 MG TAB (IMMEDIATE RELEASE) PO PRN ×4 (00:23→21:13)
[2019-09-13 05:42] LABS: Basophils # (auto) 0.04 K/uL (0-0.2); Basophils % (auto) 0.2 %; Eosinophils # (auto) 0.18 K/uL (0-0.5); Hematocrit (blood only) 43.1 % (42-52); Hemoglobin 14.5 g/dL (14.0-18.0); Immature Granulocytes # (auto) 0.06 K/uL (0.00-0.02); Immature Granulocytes % (auto) 0.3 %; Lymphocytes # (auto) 2.89 K/uL (1.2-3.4); Lymphocytes % (auto) 16.2 %; Mean Corpuscular Hemoglobin 31.7 pg (25-34); Mean Corpuscular Hgb Conc 33.6 g/dL (32-36); Mean Corpuscular Volume 94.1 fL (80-100); Mean Platelet Volume 9.6 fL (7.4-10.4); Monocytes # (auto) 1.83 K/uL (0.11-0.59); Monocytes % (auto) 10.2 %; Neutrophils # (auto) 12.87 K/uL (1.4-6.5); Neutrophils % (auto) 72.1 %; Platelet Count 206 K/uL (130-400); RDW Coefficient of Variation 14.1 % (11.5-14.5); RDW Standard Deviation 48.4 fL (36.4-46.3); Red Blood Count 4.58 M/uL (4.7-6.1); White Blood Count 17.87 K/uL (4.8-10.8)
[2019-09-13 06:15] LABS: BUN Creatinine Ratio 22.2 (10-20); Calcium 8.6 mg/dl (8.5-10.1); Creatinine Clr Calc Pharmacy 131.3 ml/min; Est GFR (African American) 120.1; Est GFR (Non-African American) 103.6
[2019-09-13 06:43] LABS: Estimated Average Glucose 154 mg/dl
[2019-09-13] MEDS: PANTOprazole 40 MG TAB PO SCH (07:38)
[2019-09-13] MEDS: COLCHICINE 0.6 MG TAB PO SCH ×3 (07:38→20:23)
[2019-09-13] MEDS: ATORVASTATIN 20 MG TAB PO SCH (07:38)
[2019-09-13] MEDS: cefTRIAXone SODIUM 2,000 MG in DEXTROSE 5% 50 ML IV SCH (08:13)
[2019-09-13] MEDS: INSULIN GLARGINE SOLOSTAR 100 UNITS/ML 3 ML PEN SC SCH (09:36)
--- NOTE | 2019-09-13 10:04 | Cardiology Progress Note ---
Date of Service September 13, 2019 Assessment & Plan (1) Pericarditis: (2) Chest pain: (3) Acute pericardial effusion: He patient feels better. Still has an elevated white count. I will increase the colchicine to 3 times daily. So far her cultures have been negative. Subjective The patient's pleuritic discomfort is improving. Had a temperature last night at midnight of 38. Review of Systems Review of Systems: All systems reviewed & are unremarkable except as noted in HPI & below Nothing additional to add. Physical Exam Physical Exam: General: no acute distress and stated age Head: normocephalic, no masses, lesions, tenderness or abnormalities Eyes: conjunctiva are pink and non-injected, sclera clear Neck: supple, no adenopathy, no bruits, normal jugular venous pulse, no hepatojugular reflux Chest: normal shape and normal respiratory effort Lungs: clear to auscultation and percussion Cardiac Exam: - regular rate & rhythm, no murmurs gallops or rubs - normal S1, normal S2 Pulses: 2(+) throughout Abdomen: abdomen soft, non-tender, no abnormal masses and no hepatosplenomegaly Musculoskeletal: no gait disturbance, no joint inflammation, no deforming arthritis Extremities: no edema and no cyanosis Neuro: grossly normal exam Results & Data Vital Signs (Past 12 Hours) Vital Signs Temp Pulse Pulse Resp BP BP Pulse Ox 09/13/19 08:00 37.0 C 102 H 20 127/89 94 09/13/19 07:00 102 H 09/13/19 04:26 37.1 C 104 H 18 126/82 92 09/13/19 00:19 38.0 C H 105 H 19 123/90 91 09/12/19 23:11 106 H Laboratory Results Laboratory Results - last 24 hr 09/12/19 09/12/19 09/12/19 02:10 11:24 16:28 WBC RBC Hgb Hct MCV MCH MCHC RDW Std Deviation RDW Coeff of Francis Plt Count MPV Immature Gran % (Auto) Neut % (Auto) Lymph % (Auto) [place] % (Auto) Eos % (Auto) Baso % (Auto) Immature Gran # (Auto) Neut # (Auto) Lymph # (Auto) [place] # (Auto) Eos # (Auto) Baso # (Auto) Sodium Potassium Chloride Carbon Dioxide Anion Gap BUN Creatinine Est Cr Clr Drug Dosing Est GFR ( Amer) Est GFR (Non-Af Amer) BUN/Creatinine Ratio Glucose POC Glucose 217 H 160 H Estimat Average Glucose 154 Hemoglobin A1c 7.0 H Calcium 09/13/19 09/13/19 09/13/19 00:16 05:30 05:30 WBC 17.87 H RBC 4.58 L Hgb 14.5 Hct 43.1 MCV 94.1 MCH 31.7 MCHC 33.6 RDW Std Deviation 48.4 H RDW Coeff of Francis 14.1 Plt Count 206 MPV 9.6 Immature Gran % (Auto) 0.3 Neut % (Auto) 72.1 Lymph % (Auto) 16.2 [place] % (Auto) 10.2 Eos % (Auto) 1.0 Baso % (Auto) 0.2 Immature Gran # (Auto) 0.06 H Neut # (Auto) 12.87 H Lymph # (Auto) 2.89 [place] # (Auto) 1.83 H Eos # (Auto) 0.18 Baso # (Auto) 0.04 Sodium 136 Potassium 4.0 Chloride 107 Carbon Dioxide 20 L Anion Gap 9.0 BUN 17 Creatinine 0.77 Est Cr Clr Drug Dosing 131.3 Est GFR ( Amer) 120.1 Est GFR (Non-Af Amer) 103.6 BUN/Creatinine Ratio 22.2 H Glucose 132 H POC Glucose 135 H Estimat Average Glucose Hemoglobin A1c Calcium 8.6 09/13/19 06:38 WBC RBC Hgb Hct MCV MCH MCHC RDW Std Deviation RDW Coeff of Francis Plt Count MPV Immature Gran % (Auto) Neut % (Auto) Lymph % (Auto) [place] % (Auto) Eos % (Auto) Baso % (Auto) Immature Gran # (Auto) Neut # (Auto) Lymph # (Auto) [place] # (Auto) Eos # (Auto) Baso # (Auto) Sodium Potassium Chloride Carbon Dioxide Anion Gap BUN Creatinine Est Cr Clr Drug Dosing Est GFR ( Amer) Est GFR (Non-Af Amer) BUN/Creatinine Ratio Glucose POC Glucose 134 H Estimat Average Glucose Hemoglobin A1c Calcium Medications Administered Current Inpatient Medications Acetaminophen (Tylenol) 650 mg PO Q4H PRN PRN Reason: Pain or Fever Stop: 10/12/19 05:54 Last Admin: 09/13/19 00:23 Dose: 650 mg Documented by: Atorvastatin Calcium (Lipitor) 20 mg PO DAILY [facility] Stop: 10/12/19 08:59 Last Admin: 09/13/19 07:38 Dose: 20 mg Documented by: Colchicine (Colcrys) 0.6 mg PO TID MELISSA Stop: 10/13/19 13:59 Dextrose (Dextrose 50%) 25 - 50 ml IV UD PRN; Protocol PRN Reason: Hypoglycemia Protocol Stop: 10/12/19 05:54 Glucagon (Glucagen) 1 mg SQ UD PRN; Protocol PRN Reason: Hypoglycemia Protocol Stop: 10/12/19 05:54 Glucose (Dex4 Glucose) 4 - 8 tabs PO UD PRN; Protocol PRN Reason: Hypoglycemia Protocol Stop: 10/12/19 05:54 Glucose (Glucose 40%) 15 - 30 gm PO UD PRN; Protocol PRN Reason: Hypoglycemia Protocol Stop: 10/12/19 05:54 Lorazepam (Ativan) 0.25 mg in 0.5 mls @ 0.5 mls/min IV Q4H PRN PRN Reason: Anxiety Stop: 10/12/19 05:54 Sodium Chloride (Nss 1000ml) 1,000 mls @ 80 mls/hr IV .[id number] [facility] Stop: 10/12/19 07:14 Last Admin: 09/12/19 23:00 Dose: 80 mls/hr Documented by: Promethazine HCl 12.5 mg/ (Sodium Chloride) 50.5 mls @ 202 mls/hr IV Q6H PRN PRN Reason: Nausea And Vomiting Stop: 10/12/19 05:54 Ceftriaxone Sodium 2,000 mg/ (Dextrose) 70 mls @ 140 mls/hr IV Q24H MELISSA Stop: 09/22/19 08:59 Last Infusion: 09/13/19 08:54 Dose: Infused Documented by: Insulin Aspart (Novolog Flexpen) 0 units SC Q6 MELISSA Stop: 10/12/19 06:14 Last Admin: 09/13/19 06:43 Dose: Not Given Documented by: Insulin Glargine (Lantus Solostar Pen) 10 units SC DAILY [facility] Stop: 10/13/19 08:59 Last Admin: 09/13/19 09:36 Dose: Not Given Documented by: Ketorolac Tromethamine (Toradol) 15 mg IV Q6H PRN PRN Reason: Pain Stop: 09/17/19 05:54 Lisinopril (Zestril) 5 mg PO QAM MELISSA Stop: 10/12/19 08:59 Last Admin: 09/12/19 07:46 Dose: 5 mg Documented by: Miscellaneous (Carbohydrates For Hypoglycemia) 15 - 30 gm PO UD PRN PRN Reason: Hypoglycemia Protocol Stop: 10/12/19 05:54 Miscellaneous Information () 1 ea N/A UD PRN PRN Reason: Consult Stop: 10/12/19 08:32 Morphine Sulfate (Morphine Sulfate) 4 mg IV Q4H PRN PRN Reason: Pain Stop: 09/26/19 05:54 Oxycodone HCl (Roxicodone Immediate Rel) 5 mg PO Q4H PRN PRN Reason: Pain Stop: 09/26/19 05:54 Last Admin: 09/13/19 08:16 Dose: 5 mg Documented by: Pantoprazole Sodium (Protonix) 40 mg PO DAILY [facility] Stop: 10/12/19 08:59 Last Admin: 09/13/19 07:38 Dose: 40 mg Documented by: (1) Pericarditis Chronicity: acute Pericarditis type: unspecified type Qualified Code(s): I30.9 - Acute pericarditis, unspecified
[2019-09-13] MEDS ORDERED: Nursing to Pharmacy Communication ONE (10:13)
--- NOTE | 2019-09-13 11:08 | Hospitalist Progress Note ---
Date of Service September 13, 2019 Assessment & Plan (1) Chest pain: 54 year old male with DM and HTN presenting with chest pain PERICARDIAL EFFUSION, LIKELY PERICARDITIS, r/o LYME CARDITIS Lyme screen: equivocal Lyme Western blot: pending Blood cultures: negative so far CT chest: no PE Echo: small pericardial effusion, LVH, EF 60-65% remains afebrile, BP stable, chest pain continues to improve continue Ceftriaxone IV Day 2 Colchicine increased to 0.6mg TID appreciate Cardio SVC recommendations consulted ID as well HYPERTENSION BP stable hold Lisinopril-HCTZ IV fluids continued DM 2 hold Metformin ISS for now ABNORMAL CT CHEST FINDINGS pulmonary nodules and hepatic steatosis monitor and ff up as outpatient DVT prophylaxis hold Lovenox in light of pericardial effusion continue SCDs Disposition anticipate d/c home when medically stable Admission and Anticipated Discharge Date Admission Date: September 12, 2019 Subjective ff up for pericarditis, pericardial effusion seen sleeping but easily awakened states chest pain is improving gradually no shortness of breath, palpitations, dizziness denies cough, headache, abdominal pain, problems with urination or BM no other symptoms Review of Systems Review of Systems: All systems reviewed & are unremarkable except as noted in HPI & below Physical Exam Physical Exam: General- oriented x 3, not in distress, speaks in sentences with no effort or accessory muscle use Eyes- anicteric Neck- no JVD Lungs- clear breath sounds bilaterally no crackles no wheezing Heart- normal rate, regular rhythm; no murmurs Abdomen- normal bowel sounds, nondistended, soft, nontender Extremities- no pretibial edema, no calf tenderness Neuro- alert, oriented x 3; no gross focal neurologic deficits Skin- warm & dry Results & Data Results & Data ([facility]) Vital Signs (Past 12 Hours) Vital Signs Temp Pulse Pulse Resp BP BP Pulse Ox 09/13/19 08:00 37.0 C 102 H 20 127/89 94 09/13/19 07:00 102 H 09/13/19 04:26 37.1 C 104 H 18 126/82 92 09/13/19 00:19 38.0 C H 105 H 19 123/90 91 09/12/19 23:11 106 H Laboratory Results Laboratory Results - last 24 hr 09/12/19 09/12/19 09/12/19 02:10 11:24 16:28 WBC RBC Hgb Hct MCV MCH MCHC RDW Std Deviation RDW Coeff of Francis Plt Count MPV Immature Gran % (Auto) Neut % (Auto) Lymph % (Auto) [place] % (Auto) Eos % (Auto) Baso % (Auto) Immature Gran # (Auto) Neut # (Auto) Lymph # (Auto) [place] # (Auto) Eos # (Auto) Baso # (Auto) Sodium Potassium Chloride Carbon Dioxide Anion Gap BUN Creatinine Est Cr Clr Drug Dosing Est GFR ( Amer) Est GFR (Non-Af Amer) BUN/Creatinine Ratio Glucose POC Glucose 217 H 160 H Estimat Average Glucose 154 Hemoglobin A1c 7.0 H Calcium 09/13/19 09/13/19 09/13/19 00:16 05:30 05:30 WBC 17.87 H RBC 4.58 L Hgb 14.5 Hct 43.1 MCV 94.1 MCH 31.7 MCHC 33.6 RDW Std Deviation 48.4 H RDW Coeff of Francis 14.1 Plt Count 206 MPV 9.6 Immature Gran % (Auto) 0.3 Neut % (Auto) 72.1 Lymph % (Auto) 16.2 [place] % (Auto) 10.2 Eos % (Auto) 1.0 Baso % (Auto) 0.2 Immature Gran # (Auto) 0.06 H Neut # (Auto) 12.87 H Lymph # (Auto) 2.89 [place] # (Auto) 1.83 H Eos # (Auto) 0.18 Baso # (Auto) 0.04 Sodium 136 Potassium 4.0 Chloride 107 Carbon Dioxide 20 L Anion Gap 9.0 BUN 17 Creatinine 0.77 Est Cr Clr Drug Dosing 131.3 Est GFR ( Amer) 120.1 Est GFR (Non-Af Amer) 103.6 BUN/Creatinine Ratio 22.2 H Glucose 132 H POC Glucose 135 H Estimat Average Glucose Hemoglobin A1c Calcium 8.6 09/13/19 06:38 WBC RBC Hgb Hct MCV MCH MCHC RDW Std Deviation RDW Coeff of Francis Plt Count MPV Immature Gran % (Auto) Neut % (Auto) Lymph % (Auto) [place] % (Auto) Eos % (Auto) Baso % (Auto) Immature Gran # (Auto) Neut # (Auto) Lymph # (Auto) [place] # (Auto) Eos # (Auto) Baso # (Auto) Sodium Potassium Chloride Carbon Dioxide Anion Gap BUN Creatinine Est Cr Clr Drug Dosing Est GFR ( Amer) Est GFR (Non-Af Amer) BUN/Creatinine Ratio Glucose POC Glucose 134 H Estimat Average Glucose Hemoglobin A1c Calcium
--- NOTE | 2019-09-13 11:12 | Infectious Disease Consult ---
Date of Consultation September 13, 2019 Assessment & Plan (1) Pericarditis: agree with colchicine and rocephin pending final lyme titer results. may take several days to return. If patient is to be d/c home prior to final testing results, would suggest a transition to po doxy 100mg po bid with food to complete 28 day course. History of Present Illness Attending Physician: David Armstrong MD pt admitted with 2 days of chest pain, CTA in ER negative for PE but pericardial effusion noted, no tamponade on echo. was evaluated by cardiology and ct surgery and felt to have pericarditis. was placed on colchicine with clinical improvement. lyme testing done, no known tick bites but [place] endemic area. lyme screen equivocal, titer pending. tmax in hospital 38, was placed on rocehin pending lyme testing, ID consulted for equivocal screen test. blood cultures negative. wbc initially 19, improved to 17. ESR 60. COVID testing performed as well. creat normal. tolerating abx. Allergies Allergy/AdvReac Type Severity Reaction Status Date / Time clams Allergy Severe violently Verified 09/12/19 03:47 ill shellfish derived Allergy Severe violently Verified 09/12/19 02:19 ill Home Medications Home Medications Medication Instructions Recorded Confirmed Type atorvastatin 20 mg PO DAILY 09/12/19 09/12/19 History diclofenac sodium 1 % TOPICAL DIRECTED 09/12/19 09/12/19 History lisinopril-hydrochlorothiazide 1 tab PO DAILY 09/12/19 09/12/19 History meloxicam 15 mg PO DAILY 09/12/19 09/12/19 History metformin 500 mg PO BID 09/12/19 09/12/19 History omeprazole 20 mg PO DAILY 09/12/19 09/12/19 History Patient History Medical History Diabetes High blood pressure Surgical History No pertinent past surgical history Social History Preferred Language: Malagasy Communication Ability: Effective Motor Rebuilder Required: No Beliefs That Will Affect Care: None Current Living Situation: Spouse Other Information That Helps Us Care for You: No Feels Safe at Home: Yes Safety Concerns: Feels Safe At This Time Smoking Status: Former smoker Tobacco Type: cigarettes ; Hx Alcohol Use: Yes Alcohol type: beer Hx Substance Use: No Review of Systems Review of Systems: per h&p Physical Exam Physical Exam: exam not performed by this provider due to COVID isolation and need to preserve ppe Results & Data ([facility]) Vital Signs (Past 12 Hours) Vital Signs Temp Pulse Pulse Resp BP BP Pulse Ox 09/13/19 08:00 37.0 C 102 H 20 127/89 94 09/13/19 07:00 102 H 09/13/19 04:26 37.1 C 104 H 18 126/82 92 09/13/19 00:19 38.0 C H 105 H 19 123/90 91 09/12/19 23:11 106 H Laboratory Results Microbiology 09/12/19 03:13 Blood Aerobic Blood Culture - Preliminary No growth in Aerobic bottle after 24 hours. 09/12/19 03:13 Blood Anaerobic Blood Culture - Preliminary No growth in Anaerobic bottle after 24 hours. 09/12/19 03:16 Blood Aerobic Blood Culture - Preliminary No growth in Aerobic bottle after 24 hours. 09/12/19 03:16 Blood Anaerobic Blood Culture - Preliminary No growth in Anaerobic bottle after 24 hours. PG Care Time/CCT Total # of Minutes Spent Total Time Spent with Patient: Total time spent is greater than 50% in coordination of care (as documented) at patient's floor/unit and/or counseling patient: Coding Level of Care Code 36022 Inpt Consult Level 2 Diagnoses Pericarditis I30.9 Chronicity: acute Pericarditis type: unspecified type (1) Pericarditis Chronicity: acute Pericarditis type: unspecified type Qualified Code(s): I30.9 - Acute pericarditis, unspecified
[2019-09-13] MEDS: SODIUM CHLORIDE 0.9% 1000ML 1,000 ML IV SCH (11:26)
[2019-09-13] MEDS ORDERED: VANCOMYCIN TROUGH ONE (12:30)
[2019-09-14] MEDS: SODIUM CHLORIDE 0.9% 1000ML 1,000 ML IV SCH ×2 (00:10→12:35)
[2019-09-14] MEDS: OXYCODONE HCL IR 5 MG TAB (IMMEDIATE RELEASE) PO PRN (02:27)
[2019-09-14] MEDS: COLCHICINE 0.6 MG TAB PO SCH ×2 (07:32→14:35)
[2019-09-14] MEDS: PANTOprazole 40 MG TAB PO SCH (07:32)
[2019-09-14] MEDS: ATORVASTATIN 20 MG TAB PO SCH (07:32)
[2019-09-14] MEDS: INSULIN GLARGINE SOLOSTAR 100 UNITS/ML 3 ML PEN SC SCH (07:33)
[2019-09-14] MEDS: INSULIN ASPART 100 UNITS/ML 3 ML PEN SC SCH ×3 (07:52→17:03)
[2019-09-14] MEDS: cefTRIAXone SODIUM 2,000 MG in DEXTROSE 5% 50 ML IV SCH (07:57)
--- NOTE | 2019-09-14 10:58 | Cardiology Progress Note ---
Date of Service September 14, 2019 Assessment & Plan (1) Pericarditis: (2) Chest pain: (3) Acute pericardial effusion: From a cardiac standpoint I believe the patient can be discharged to outpatient follow-up. I would continue the colchicine post discharge until we see him in the office. I will arrange follow-up. Subjective The patient is feeling better. He is actually walking the halls today. Infectious disease consult appreciated. Review of Systems Review of Systems: All systems reviewed & are unremarkable except as noted in HPI & below Nothing additional to add. Physical Exam Physical Exam: General: no acute distress and stated age Head: normocephalic, no masses, lesions, tenderness or abnormalities Eyes: conjunctiva are pink and non-injected, sclera clear Neck: supple, no adenopathy, no bruits, normal jugular venous pulse, no hepato jugular reflux Chest: normal shape and normal respiratory effort Lungs: clear to auscultation and percussion Cardiac Exam: - regular rate & rhythm, no murmurs gallops or rubs - normal S1, normal S2 Pulses: 2(+) throughout Abdomen: abdomen soft, non-tender, no abnormal masses and no hepatosplenomegaly Musculoskeletal: no gait disturbance, no joint inflammation, no deforming arthritis Extremities: no edema and no cyanosis Neuro: grossly normal exam Results & Data Vital Signs (Past 12 Hours) Vital Signs Temp Pulse Pulse Resp BP Pulse Ox 09/14/19 07:30 89 09/14/19 07:11 37.3 C 90 16 135/91 93 09/14/19 03:03 37.4 C 90 16 138/87 93 09/14/19 00:00 90 09/13/19 23:29 37.7 C H 95 H 18 135/86 93 Laboratory Results Laboratory Results - last 24 hr 09/13/19 09/13/19 09/13/19 11:21 16:06 20:18 POC Glucose 146 H 169 H 202 H 09/14/19 07:45 POC Glucose 133 H Medications Administered Current Inpatient Medications Acetaminophen (Tylenol) 650 mg PO Q4H PRN PRN Reason: Pain or Fever Stop: 10/12/19 05:54 Last Admin: 09/13/19 00:23 Dose: 650 mg Documented by: Atorvastatin Calcium (Lipitor) 20 mg PO DAILY [facility] Stop: 10/12/19 08:59 Last Admin: 09/14/19 07:32 Dose: 20 mg Documented by: Colchicine (Colcrys) 0.6 mg PO TID MELISSA Stop: 10/13/19 13:59 Last Admin: 09/14/19 07:32 Dose: 0.6 mg Documented by: Dextrose (Dextrose 50%) 25 - 50 ml IV UD PRN; Protocol PRN Reason: Hypoglycemia Protocol Stop: 10/12/19 05:54 Glucagon (Glucagen) 1 mg SQ UD PRN; Protocol PRN Reason: Hypoglycemia Protocol Stop: 10/12/19 05:54 Glucose (Dex4 Glucose) 4 - 8 tabs PO UD PRN; Protocol PRN Reason: Hypoglycemia Protocol Stop: 10/12/19 05:54 Glucose (Glucose 40%) 15 - 30 gm PO UD PRN; Protocol PRN Reason: Hypoglycemia Protocol Stop: 10/12/19 05:54 Lorazepam (Ativan) 0.25 mg in 0.5 mls @ 0.5 mls/min IV Q4H PRN PRN Reason: Anxiety Stop: 10/12/19 05:54 Sodium Chloride (Nss 1000ml) 1,000 mls @ 80 mls/hr IV .[id number] [facility] Stop: 10/12/19 07:14 Last Admin: 09/14/19 00:10 Dose: 80 mls/hr Documented by: Promethazine HCl 12.5 mg/ (Sodium Chloride) 50.5 mls @ 202 mls/hr IV Q6H PRN PRN Reason: Nausea And Vomiting Stop: 10/12/19 05:54 Ceftriaxone Sodium 2,000 mg/ (Dextrose) 70 mls @ 140 mls/hr IV Q24H MELISSA Stop: 09/22/19 08:59 Last Infusion: 09/14/19 08:30 Dose: Infused Documented by: Insulin Aspart (Novolog Flexpen) 0 units SC ACHS [facility] Stop: 10/13/19 11:29 Last Admin: 09/14/19 07:52 Dose: 3 units Documented by: Insulin Glargine (Lantus Solostar Pen) 10 units SC DAILY [facility] Stop: 10/13/19 08:59 Last Admin: 09/14/19 07:33 Dose: 10 units Documented by: Ketorolac Tromethamine (Toradol) 15 mg IV Q6H PRN PRN Reason: Pain Stop: 09/17/19 05:54 Lisinopril (Zestril) 5 mg PO QAM MELISSA Stop: 10/12/19 08:59 Last Admin: 09/12/19 07:46 Dose: 5 mg Documented by: Miscellaneous (Carbohydrates For Hypoglycemia) 15 - 30 gm PO UD PRN PRN Reason: Hypoglycemia Protocol Stop: 10/12/19 05:54 Miscellaneous Information () 1 ea N/A UD PRN PRN Reason: Consult Stop: 10/12/19 08:32 Morphine Sulfate (Morphine Sulfate) 4 mg IV Q4H PRN PRN Reason: Pain Stop: 09/26/19 05:54 Oxycodone HCl (Roxicodone Immediate Rel) 5 mg PO Q4H PRN PRN Reason: Pain Stop: 09/26/19 05:54 Last Admin: 09/14/19 02:27 Dose: 5 mg Documented by: Pantoprazole Sodium (Protonix) 40 mg PO DAILY MELISSA Stop: 10/12/19 08:59 Last Admin: 09/14/19 07:32 Dose: 40 mg Documented by: (1) Pericarditis Chronicity: acute Pericarditis type: unspecified type Qualified Code(s): I30.9 - Acute pericarditis, unspecified
[2019-09-14] MEDS ORDERED: ZOLPIDEM TARTRATE 5 MG TAB PO PRN (15:07)
--- NOTE | 2019-09-14 17:19 | Hospitalist Progress Note ---
Date of Service September 14, 2019 Assessment & Plan (1) Chest pain: 54 year old male with DM and HTN presenting with chest pain PERICARDIAL EFFUSION, LIKELY PERICARDITIS, possible LYME CARDITIS Lyme screen: equivocal Lyme Western blot: pending Blood cultures: negative so far CT chest: no PE Echo: small pericardial effusion, LVH, EF 60-65% remains afebrile, BP stable, chest pain improving since admission continue Ceftriaxone IV Day 3 Colchicine 0.6mg TID appreciate Cardio SVC recommendations consulted ID as well--> recommend Doxycycline 100mg BID to complete 28 day course HYPERTENSION BP stable resume Lisinopril HCTZ tomorrow IV fluids continued DM 2 hold Metformin ISS given ABNORMAL CT CHEST FINDINGS pulmonary nodules and hepatic steatosis monitor and ff up as outpatient DVT prophylaxis hold Lovenox in light of pericardial effusion continue SCDs Disposition anticipate d/c home when medically stable Admission and Anticipated Discharge Date Admission Date: September 12, 2019 Subjective ff up for pericarditis, pericardial effusion seen resting in bed, sitting up appears brighter, not in distress or discomfort states chest pain continues to improve--> now mild no dyspnea, palpitaitons, dizziness no fever/chills, arthralgias denies other symptoms Review of Systems Review of Systems: All systems reviewed & are unremarkable except as noted in HPI & below Physical Exam Physical Exam: General- oriented x 3, not in distress, speaks in sentences with no effort or accessory muscle use Eyes- anicteric Neck- no JVD Lungs- clear BS BL no rales/wheezing Heart- normal rate, regular rhythm; no murmurs Abdomen- normal bowel sounds, nondistended, soft, nontender Extremities- no pretibial edema, no calf tenderness mild edema right forearm- no erythema, mild tenderness- from IV infiltration no R upper arm edema, erythema Neuro- alert, oriented x 3; no gross focal neurologic deficits Skin- warm & dry Results & Data Results & Data ([facility]) Vital Signs (Past 12 Hours) Vital Signs Temp Pulse Pulse Resp BP BP Pulse Ox 09/14/19 16:00 85 09/14/19 15:41 37.0 C 85 16 125/86 95 09/14/19 11:14 36.9 C 91 H 18 132/98 94 09/14/19 07:30 89 09/14/19 07:11 37.3 C 90 16 135/91 93 Laboratory Results Laboratory Results - last 24 hr 09/13/19 09/14/19 09/14/19 20:18 07:45 11:34 POC Glucose 202 H 133 H 173 H 09/14/19 16:31 POC Glucose 129 H
--- NOTE | 2019-09-14 17:49 | Discharge Summary ---
Date of Service September 14, 2019 Admission HPI Per Admitting Provider History obtained from patient and records. Medical history significant for hypertension, DM 2 on oral medications, GERD, past tobacco abuse. 2 days history of pleuritic substernal pain worsening over the next few days with chills and shortness of breath. 2 days ago patient remembers being hunched over working on an engine model. No cough symptoms. No recent recollection of tick bites although there are ticks at place of residence. At the ER, patient given Doxycycline for sepsis. 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 Admission Exam Per Admitting Provider GENERAL: uncomfortable, minimal respiratory distress SKIN: Normal color, warm HEENT: Bespectacled, pink palpebral conjunctivae, no ptosis, dry buccal mucosa NECK : Supple, no tenderness CHEST : Decreased breath sounds , no tenderness HEART : Tachycardic, no obvious murmurs ABDOMEN: Some distention, nontender EXTREMITIES : No LE swelling/tenderness, no other conspicuous deformities noted NEUROLOGIC : Coherent, no facial asymmetry, no other gross focality Principal Diagnosis PERICARDITIS WITH SMALL PERICARDIAL EFFUSION Discharge Exam General- oriented x 3, not in distress, speaks in sentences with no effort or accessory muscle use Eyes- anicteric Neck- no JVD Lungs- clear BS BL no rales/wheezing Heart- normal rate, regular rhythm; no murmurs Abdomen- normal bowel sounds, nondistended, soft, nontender Extremities- no pretibial edema, no calf tenderness mild edema right forearm- no erythema, mild tenderness- from IV infiltration no R upper arm edema, erythema Neuro- alert, oriented x 3; no gross focal neurologic deficits Skin- warm & dry Discharge Data Allergies Allergy/AdvReac Type Severity Reaction Status Date / Time clams Allergy Severe violently Verified 09/12/19 03:47 ill shellfish derived Allergy Severe violently Verified 09/12/19 02:19 ill Consultations 09/12/19 03:17 ED Decision to Admit Stat 09/12/19 05:55 Consult Cardiology Routine Consult Infectious Diseases Stat Consult Thoracic Surgery Routine Ordered Studies 09/12/19 01:59 CT angio chest dissec wo/w con Urgent FINDINGS: Thyroid: Imaged portions of the thyroid gland are normal in appearance. Thoracic aorta: Noncontrast images reveal no evidence of acute aortic hematoma. Postcontrast images reveal no evidence of thoracic aortic aneurysm. There is no evidence of thoracic aortic dissection. Pulmonary vasculature: The pulmonary trunk is normal in caliber. There are no central filling defects identified to suggest pulmonary embolus. Note that this examination was not protocoled for the evaluation of pulmonary emboli. HEART: There is a moderate pericardial effusion. Lungs and pleural spaces: There are dependent bilateral pulmonary airspace opacities, likely atelectatic although an infectious/inflammatory processes could appear similar. There is underlying emphysema with apical blebs. There is a solid 9 mm right lower lobe perifissural nodule. Given its location, this could represent an intrapulmonary lymph node. Follow-up per Fleischner criteria is recommended. There is a trace left pleural effusion. Mediastinum: Mediastinal lymph nodes are the upper limits of normal in size. Yulissa: There is no evidence of pathologic hilar lymphadenopathy Axilla: There is no evidence of pathologic axillary lymphadenopathy Upper abdomen: There is hepatic steatosis. Skeletal structures: There are no lytic or blastic osseous lesions. IMPRESSION: 1. No evidence of thoracic aortic aneurysm or dissection 2. Moderate pericardial effusion. 3. Solid 9 mm right lower lobe perifissural nodule. A 3 month follow-up CT scan is recommended. 4. Dependent lower lung zone airspace opacity statistically atelectatic. 5. Hepatic steatosis. 6. Trace left pleural effusion Please refer to below summary of Fleischner criteria recommendations for follow- up of incidental CT nodules (Merari Almanza, Guidelines for management of small pulmonary nodules detected on CT scans: A statement from the Fleischner Society, Radiology 237: [id number].) SOLID NODULES Solitary nodule size: <6 mm * low risk patients: no follow-up needed * high risk patients: optional CT at 12 months Solitary nodule size: 6-8 mm * low risk patients: follow-up at 6-12 months, then consider further follow-up at 18-24 months * high risk patients: initial follow-up CT at 6-12 months and then at 18-24 months if no change Solitary nodule size: >8 mm * either low or high risk patients - consider follow-up CT at 3 months, and/or CT-PET, and/or biopsy Multiple nodules size: <6 mm * low risk patients: no routine follow-up * high risk patients: optional CT at 12 months Multiple nodules size: 6-8 mm * low risk patients: follow-up at 3-6 months, then consider further follow-up at 18-24 months * high risk patients: follow-up at 3-6 months, then at 18-24 months if no change Multiple nodules size: >8 mm * low risk patients: follow-up at 3-6 months, then consider further follow-up at 18-24 months * high risk patients: follow-up at 3-6 months, then at 18-24 months if no change Note: newly detected indeterminate nodule in persons 35 years of age or older. * low risk patients: minimal or absent history of smoking and/or other known risk factors * high risk patients: history of smoking or of other known risk factors (e.g. first degree relative with lung cancer, or exposure to asbestos, radon, uranium) * if a nodule up to 8 mm is partly solid or is ground glass further follow-up is required after 24 months to exclude possible slow growing adenocarcinoma (CECE) SUBSOLID NODULES Solitary pure ground-glass nodule * nodule size <6 mm - no CT follow-up required * nodule size >=6 mm - follow-up CT at 6-12 months, then every 2 years until 5 years Solitary part-solid nodule * nodule size <6 mm - no CT follow-up required * nodule size >=6 mm - follow-up CT at 3-6 months. If unchanged, and solid component remains <6 mm, then annual follow-up for 5 years Multiple subsolid nodules * nodule size <6 mm - follow-up CT at 3-6 months, consider further follow-up at 2 and 4 years if stable * nodule size >=6 mm - follow-up CT at 3-6 months, subsequent management based on the most suspicious nodule(s) Hospital Course (1) Chest pain: 54 year old male with DM and HTN presenting with chest pain PERICARDIAL EFFUSION, LIKELY PERICARDITIS, possible LYME CARDITIS Lyme screen: equivocal Lyme Western blot: pending Blood cultures: negative so far CT chest: (please refer to full report in the procedure section) 1. No evidence of thoracic aortic aneurysm or dissection 2. Moderate pericardial effusion. 3. Solid 9 mm right lower lobe perifissural nodule. A 3 month follow-up CT scan is recommended. 4. Dependent lower lung zone airspace opacity statistically atelectatic. 5. Hepatic steatosis. 6. Trace left pleural effusion Echo: small pericardial effusion, LVH, EF 60-65% Senior Report Developer consulted--> given Colchicine PO ID consutled--> given Ceftri IV pain gradually improved, remained afebrile discharge plan: Colchicine 0.6mg TID PRN Oxycodone ff up with Rishabh Senior Report Developer Dr. Castro in 1-2 weeks Doxycycline 100mg BID to complete 28 days treatment ff up with PCP in 3-5 days HYPERTENSION BP stable continue Lisinopril HCTZ DM [address] CHEST FINDINGS: PULMONARY NODULE AND HEPATIC STEATOSIS (please refer to full report in the procedure section) Solid 9 mm right lower lobe perifissural nodule--> follow-up CT at 3 months, and/or CT-PET, and/or biopsy Hepatic steatosis--> ff up as outpatient Disposition dc home ff up with PCP in 3-5 days ff up with Rishabh Senior Report Developer Dr. Castro in 1-2 weeks Total Time Total Time Spent Total Time Spent (In Minutes): > 30 minutes Discharge Plan Discharge Items Patient Disposition: Home - Self-Care Reason For Visit: SEPSIS, PERICARDIAL EFFUSION Discharge Diagnosis: PERIRCARDITIS, PERICARDIAL EFFUSION Condition on Discharge: Good Activity: As commented below Activity Comment: RESUME ACTIVITY GRADUALLY TOLERATED Lifting: Wait until after follow-up appointment Exercise/Sports: Wait until after follow-up appointment Driving/Machine Use: NO DRIVING UNTIL RE-EVALUATED AND ALLOWED BY PRIMARY CARE PHYSICIAN Non-emergency contact: Primary Care Provider Call non-emergency contact if: you have any medication questions, your symptoms worsen, your pain is not controlled, your pain is worsening, your pain is unusual for you, your pain is concerning for you and you have a fever Follow-up/Referrals: Edison Castro, [Senior Report Developer] - Diet: Carb Consistent or DM2 and Heart Healthy Addtl Attending Provider Instructions: PLEASE REVIEW YOUR NEW MEDICATION LIST AND FOLLOW INSTRUCTIONS CAREFULLY. YOUR NEW MEDICATIONS ARE: COLCHICINE - to decrease inflammation around the covering of your heart DOXYCYCLINE- antibiotic for Lyme disease, always take with full stomach CULTURELLE- probiotic to prevent diarrhea while taking Doxycycline OXYCODONE- as needed for sharp chest discomfort. NO DRIVING WHILE TAKING OXYCODONE. TAKE A LAXATIVE DAILY WHILE TAKING OXYCODONE. RESUME TAKING METFORMIN AND LISINOPRIL/HCTZ TOMORROW 09/15/19. YOU CAN ALSO TAKE TYLENOL NEEDED FOR SHARP CHEST DISCOMFORT THAT IS MILD. DO NOT TAKE MORE THAN 3,000MG OF TYLENOL PER 24 HOURS. HOLD MELOXICAM FOR NOW. DO NOT TAKE MEDICATIONS UNDER THE CLASS OF NSAIDS: IBUPROFEN, NAPROXEN, MELOXICAM WITHOUT TALKING TO YOUR DOCTOR FIRST. DRINK PLENTY OF WATER (AT LEAST 8 GLASSES A DAY). FOLLOW UP WITH YOUR PRIMARY CARE PHYSICIAN IN 3-5 DAYS. FOLLOW UP WITH [facility] DR. CASTRO IN 1-2 WEEKS. HIS OFFICE WILL CALL YOU SOON FOR THE APPOINTMENT. HIS CONTACT INFORMATION IS OUTLINED ABOVE. PLEASE CALL YOUR PRIMARY CARE PHYSICIAN OR RETURN TO THE ER IMMEDIATELY IF WITH WORSENING OF SYMPTOMS, INCREASING CHEST PAIN, FEVER/CHILLS, SHORTNESS OF BREATH, WEAKNESS, DIARRHEA, ARM OR LEG SWELLING. Pending Studies at Discharge: Yes Studies:: LYME WESTERN BLOT TEST RESULTS REPEAT BLOOD WORK - BASIC METABOLIC PROFILE- ON FOLLOW UP WITH PRIMARY CARE PHYSICIAN IN 3-5 DAYS Stand-Alone Forms: [facility] HospitalPrudent [facility], Smoking Cessation Medications and DC Order Prescriptions: New colchicine [Colcrys] 0.6 mg Tablet 0.6 mg PO TID Qty: 90 RF: 0 doxycycline hyclate 100 mg tablet 100 mg PO BID Qty: 50 RF: 0 Culturelle 10 billion cell capsule 1 cap PO DAILY Qty: 30 RF: 1 oxycodone 5 mg tablet 5 mg PO Q6H PRN (Reason: pain) Qty: 15 RF: 0 Continued diclofenac sodium 1 % Gel 1 % TOPICAL DIRECTED RF: 0 atorvastatin 20 mg Tablet 20 mg PO DAILY RF: 0 lisinopril-hydrochlorothiazide 20-12.5 mg Tablet 1 tab PO DAILY RF: 0 metformin 500 mg Tablet 500 mg PO BID RF: 0 omeprazole 20 mg Capsule,Delayed Release(Dr/Ec) 20 mg PO DAILY RF: 0 Discontinued meloxicam 15 mg Tablet 15 mg PO DAILY RF: 0 Discharge Orders: Discharge Order (Routine); Ordered 09/14/19 Ordered By: David Armstrong Admission Data Admit Date/Time: 09/12/19 04:34 Attending Provider: David Armstrong Admit Provider: Jose Luis Us Primary Care Provider: PT,DECLINED Other Providers: Jose Luis Us ; Iraida Kim ; Edison Castro ; Jose Luis Villalobos Other Interventions: Discharge Summary Assessment (RN) Last Done: 09/14/19 17:50 DC Date/Time DO NOT enter until pt leaves facility: 09/14/19 18:20
[2019-09-15 12:59] LABS: 18KDIGG Band NON-REACTIVE; 23KDIGG Band NON-REACTIVE; 23KDIGM Band NON-REACTIVE; 28KDIGG Band NON-REACTIVE; 30KDIGG Band NON-REACTIVE; 39KDIGG Band NON-REACTIVE; 39KDIGM Band NON-REACTIVE; 41KDIGG Band REACTIVE; 41KDIGM Band NON-REACTIVE; 45KDIGG Band NON-REACTIVE; 58KDIGG Band NON-REACTIVE; 66KDIGG Band NON-REACTIVE; 93KDIGG Band NON-REACTIVE; Lyme Antibodies, WB IgG NEGATIVE (NEGATIVE); Lyme Antibodies, WB IgM NEGATIVE (NEGATIVE)
--- NOTE | 2019-09-16 12:38 | Coding Query ---
To promote full compliance with coding requirements relating to patient care, provider participation is requested in all cases of dry cell assembly supervisor uncertainty. Please assist us with the question(s) below: Coding Question(s): The diagnosis(es) below was documented in the ER & H&P, then subsequently fell off all further documentation. Please indicate if it is still a possible diagnosis or ruled out. Physician's Response(s): SEPSIS (documented on H&P and then at bottom of DS as one of the Reasons for Visit) ( ) Diagnosed and POA ( ) Diagnosed and not POA ( ) Ruled out ( X ) Other (please specify) Possible Sepsis Diagnosed and POA PNEUMONIA (documented only on ER) ( ) Diagnosed and POA ( ) Diagnosed and not POA ( X ) Ruled out ( ) Other (please specify) MTDD
== END 2019-09-14 18:20 | disposition home or self-care (01) | DRG 872 ==
LOC: ED 01:22 → 2S 04:34